=== PATIENT | male | born 1960 | race Caucasian/White ===

== ENCOUNTER 2017-11-19 03:09 | Emergency (ER) | payer SELFPAY ==
[~2017-11-19] VITALS: Ht 180.3 cm; Wt 131.5 kg
[~2017-11-19 03:09] MED LIST: ACET325; ALEVE220 MG; CEPH500 PO; CLIN300 PO; COLC.6 PO; CRUTCH3 USE; FAMO20 PO; HYDACE5 PO; INDO50 PO; NAPR500 PO; OXYACE5T PO; SULTRIDS PO
[2017-11-19] MEDS ORDERED: COLCRYS0.6 MG PO (04:33)
[2017-11-19] MEDS ORDERED: Indomethacin50 MG PO (04:33)
== END 2017-11-19 04:48 | disposition home or self-care (01) ==
LOC: ER 03:09
DX: M10.071 Idiopathic gout, right ankle and foot (principal); E66.9 Obesity, unspecified; Z88.6 Allergy status to analgesic agent; Z68.41 Body mass index [BMI] 40.0-44.9, adult
CPT/HCPCS: 96372; 99283; J1885

== ENCOUNTER 2020-11-02 11:41 | Emergency (ER) | payer BC ==
[~2020-11-02] VITALS: Ht 182.9 cm; Wt 124.7 kg
[~2020-11-02 11:41] MED LIST changes: +COLCRYS0.6 MG PO; +Indomethacin50 MG PO
[2020-11-02] MEDS ORDERED: INDO50 PO (13:42)
== END 2020-11-02 14:05 | disposition home or self-care (01) ==
LOC: ER 11:41
DX: R60.0 Localized edema (principal)
CPT/HCPCS: 93971; 99283-25

== ENCOUNTER 2021-06-14 13:18 | Emergency (ER) | payer BC ==
[~2021-06-14] VITALS: Ht 177.8 cm; Wt 125.5 kg
[2021-06-14 14:21] LABS: BASOPHILS ABSOLUTE AUTO 0.01 K/mm3 (0.00-0.23); BASOPHILS PERCENT AUTO 0 % (0-2); EOSINOPHILS PERCENT AUTO 2 % (0-6); Hematocrit 35.2 % (37.0-53.0); Hemoglobin 12.1 g/dL (13.5-17.5); IMMATURE GRAN ABSOLUTE AUTO 0.02 K/mm3 (0.00-0.10); IMMATURE GRAN PERCENT AUTO 0 % (0-1); LYMPHOCYTES ABSOLUTE AUTO 0.41 K/mm3 (0.84-5.20); LYMPHOCYTES PERCENT AUTO 8 % (21-46); MONOCYTES PERCENT AUTO 8 % (4-13); Mean Corpuscular HGB 33.3 pg (26.0-34.0); Mean Corpuscular HGB Conc 34.4 g/dL (31.5-36.5); Mean Corpuscular Volume 97 fL (80-100); Mean Platelet Volume 9.1 fL (9.1-12.4); NEUTROPHILS ABSOLUTE AUTO 3.99 K/mm3 (1.96-9.15); NEUTROPHILS PERCENT AUTO 81 % (41-73); Platelet Count 107 K/mm3 (150-400); RDW Coefficient Variation 13.3 % (11.7-14.2); RDW Standard Deviation 46.5 fL (35.1-46.3); Red Blood Cell Count 3.63 M/mm3 (4.30-5.90); White Blood Cell Count 4.93 K/mm3 (4.00-11.30)
[2021-06-14 14:35] LABS: Anion Gap 6 mmol/L (6-16); Blood Urea Nitrogen 10 mg/dL (8-24); Bun/Creatinine Ratio 9.5 (12.0-20.0); CO2, Blood 23 mmol/L (21-32); Calcium, Blood 8.6 mg/dL (8.5-10.1); Chloride, Blood 103 mmol/L (98-108); Creatinine, Blood 1.05 mg/dL (0.60-1.20); Glomerular Filtration Rate >60 (60-); Glucose, Blood 97 mg/dL (70-99); Sodium, Blood 132 mmol/L (136-145)
[2021-06-14] MEDS ORDERED: LEVO750 PO (16:48)
[2021-06-14] MEDS ORDERED: Percocet 5-3251 EACH PO (16:48)
[2021-06-14] MEDS ORDERED: SULTRIDS PO (16:48)
[2021-06-14] MEDS ORDERED: ACET325 PO (16:48)
== END 2021-06-14 17:49 | disposition home or self-care (01) ==
LOC: ER 13:18
PROVIDERS: Student in an Organized Health Care Education/Training Program
DX: L03.116 Cellulitis of left lower limb (principal); L03.115 Cellulitis of right lower limb; I10 Essential (primary) hypertension
CPT/HCPCS: 36415; 73590; 80048; 83605; 85025; 85651; 86140; 87070; 87075; 87077; 87147; 87186; 87205; 93970; 96365; 96366; 96367; 96375; 99283-25; A9270; J0692; J1885; J3370; J7050

== ENCOUNTER 2021-07-12 13:35 | Inpatient (IN) | payer BC, OTHER ==
[~2021-07-12] VITALS: Ht 182.9 cm; Wt 127.7 kg
[~2021-07-12 13:35] MED LIST changes: +ACET325 PO; +LEVO750 PO; +Percocet 5-3251 EACH PO
[2021-07-12 14:36] LABS: BASOPHILS ABSOLUTE AUTO 0.01 K/mm3 (0.00-0.23); BASOPHILS PERCENT AUTO 0 % (0-2); EOSINOPHILS ABSOLUTE AUTO 0.05 K/mm3 (0.00-0.68); EOSINOPHILS PERCENT AUTO 1 % (0-6); Hematocrit 34.1 % (37.0-53.0); Hemoglobin 11.6 g/dL (13.5-17.5); IMMATURE GRAN ABSOLUTE AUTO 0.02 K/mm3 (0.00-0.10); IMMATURE GRAN PERCENT AUTO 0 % (0-1); LYMPHOCYTES ABSOLUTE AUTO 0.68 K/mm3 (0.84-5.20); LYMPHOCYTES PERCENT AUTO 15 % (21-46); MONOCYTES ABSOLUTE AUTO 0.57 K/mm3 (0.16-1.47); MONOCYTES PERCENT AUTO 13 % (4-13); Mean Corpuscular HGB 33.2 pg (26.0-34.0); Mean Corpuscular Volume 98 fL (80-100); Mean Platelet Volume 9.8 fL (9.1-12.4); NEUTROPHILS ABSOLUTE AUTO 3.19 K/mm3 (1.96-9.15); NEUTROPHILS PERCENT AUTO 71 % (41-73); Platelet Count 126 K/mm3 (150-400); RDW Standard Deviation 50.4 fL (35.1-46.3); Red Blood Cell Count 3.49 M/mm3 (4.30-5.90); White Blood Cell Count 4.52 K/mm3 (4.00-11.30)
[2021-07-12 14:54] LABS: Albumin, Blood 2.6 g/dL (3.4-5.0); Albumin/Globulin Ratio 0.6 (0.8-1.8); Bilirubin, Total 0.4 mg/dL (0.1-1.0); Bun/Creatinine Ratio 16.8 (12.0-20.0); Calcium, Blood 8.7 mg/dL (8.5-10.1); Creatinine, Blood 1.37 mg/dL (0.60-1.20); Globulin, Blood 4.7 g/dL (2.2-4.0); Potassium, Blood 3.5 mmol/L (3.5-5.5); Total Protein, Blood 7.3 g/dL (6.4-8.2)
[2021-07-12 15:46] LABS: International Normalized Ratio 0.98; Prothrombin Time Results 10.3 Sec (9.7-11.5)
[2021-07-12 16:06] LABS: Influenza A, PCR NEGATIVE (NEGATIVE); Influenza B, PCR NEGATIVE (NEGATIVE); Resp Syncytial Virus, PCR NEGATIVE (NEGATIVE); SARS-Cov-2 (COVID-19) PCR, MMC NEGATIVE (NEGATIVE)
[2021-07-12] MEDS ORDERED: LISI20 PO (16:09)
[2021-07-12 17:45] LABS: Source, Urine Catheter
[2021-07-12 17:49] LABS: Appearance, Urine Clear (Clear); Bilirubin, Urine Neg (Neg); Blood, Urine Neg (Neg); Color, Urine Yellow (P-Yellow); Glucose Qualitative, Urine Neg (Neg); Ketones, Urine Neg (Neg); Leukocyte Esterase, Urine Neg (Neg); Nitrite, Urine Neg (Neg); Protein, Urine 2+ (Neg); Specific Gravity, Urine 1.015 (1.003-1.022); Urobilinogen, Urine NORM (Normal)
[2021-07-12 18:02] LABS: Bacteria Rare /hpf; Red Blood Cells, Urine 0-2 /hpf (0-2); Renal Epithelial Few /hpf (0-Rare); Transitional Epithelial Cells Rare /hpf (0-Rare); White Blood Cells, Urine 0-2 /hpf (0-5)
[2021-07-12 18:03] LABS: Squamous Epithelial Cells Few /hpf (Few)
[2021-07-12] MEDS ORDERED: ZESTRIL40 M1 PO (21:20)
--- NOTE | 2021-07-13 01:20 | NUR ---
ADMISSION NOTE PT ADMITTED TO MED FROM ER. ARRIVED TO ROOM AT 2100. PT REQUESTING PAIN MEDS AND GIVEN FENTANYL PER EMAR. PT UP TO RESTROOM ON HIS OWN. DOES NOT WANT TO USE A URINAL. RED SORES BILAT LEGS WITH MRSA. MRSA ALSO TO GROIN. PT HAS NUMEREOUS SMALL WOUNDS TO ARMS AND LEGS. LEGS SWOLLEN AND WEEPING.
--- NOTE | 2021-07-13 03:50 | NUR ---
SHIFT SUMMARY PT PAINFUL AND MEDICATED PER EMAR. PT HAS MULTIPLE MRSA SORES TO LOWER LEGS AND GROIN. PT HAS MANY WOUNDS ON UPPER AND LOWER EXTREMITIES. LEGS ARE SWOLLEN AND WEEP. PT HAS HX OF ETOH, HYPERTENSION, AND GOUT. PT HAS A COUGH, BUT STS THAT IS NORMAL FOR HIM. NS RUNNING AT 100/HR. VERY PLEASANT PT WHO IS ABLE TO GET UP TO THE TOILET ON HIS OWN. STATED FROM ER THAT PT HAS ULCER ON HIS BUTTOCKS, NOT VISUALIZED BY ME. CALL LIGHT WITHIN REACH AND WILL CONTINUE TO MONITOR.
[2021-07-13 05:02] LABS: BASOPHILS ABSOLUTE AUTO 0.01 K/mm3 (0.00-0.23); BASOPHILS PERCENT AUTO 0 % (0-2); EOSINOPHILS ABSOLUTE AUTO 0.02 K/mm3 (0.00-0.68); EOSINOPHILS PERCENT AUTO 1 % (0-6); Hematocrit 31.8 % (37.0-53.0); Hemoglobin 10.6 g/dL (13.5-17.5); IMMATURE GRAN ABSOLUTE AUTO 0.02 K/mm3 (0.00-0.10); IMMATURE GRAN PERCENT AUTO 1 % (0-1); LYMPHOCYTES PERCENT AUTO 9 % (21-46); MONOCYTES PERCENT AUTO 14 % (4-13); Mean Corpuscular HGB 32.8 pg (26.0-34.0); Mean Corpuscular HGB Conc 33.3 g/dL (31.5-36.5); Mean Corpuscular Volume 99 fL (80-100); Mean Platelet Volume 9.8 fL (9.1-12.4); NEUTROPHILS ABSOLUTE AUTO 3.25 K/mm3 (1.96-9.15); NEUTROPHILS PERCENT AUTO 76 % (41-73); Platelet Count 104 K/mm3 (150-400); RDW Coefficient Variation 13.9 % (11.7-14.2); Red Blood Cell Count 3.23 M/mm3 (4.30-5.90)
[2021-07-13 05:24] LABS: Bun/Creatinine Ratio 19.5 (12.0-20.0); Calcium, Blood 8.1 mg/dL (8.5-10.1); Creatinine, Blood 1.33 mg/dL (0.60-1.20); Potassium, Blood 3.3 mmol/L (3.5-5.5)
--- NOTE | 2021-07-13 11:29 | NUR ---
DRESSING CHANGE/ PHOTOS IN CHART THIS RN DRESSED THE PATIENTS LEFT LEG WITH NONADHESIVE DRESSING. PHOTOS IN CHART
--- NOTE | 2021-07-13 16:50 | NUR ---
SHIFT SUMMARY PATIENT IS ALERT AND ORIENTED X3-4. PATIENT IS IND IN ROOM. PATIENT HAS BEEN MEDICATED PER EMAR. PATIENT HAS COMPLAINED OF PAIN IN CELLULITIS OF LEFT LEG. PHOTOS OF WOUND ARE IN THE CHART. LEGS ARE SWOLLEN AND WEEPING. PATIENT HAS A COUGH AT BASELINE. PATIENT STATES THAT HIS GROIN HURTS AND HAS WOUND BUT WONT LET ANYONE SEE IT. VITAL SIGNS REVIEWED. CALL LIGHT IN PLACE. WILL MONITOR UNTIL SHIFT CHANGE.
--- NOTE | 2021-07-14 04:13 | NUR ---
SHIFT SUMMARY AOX4. VSS. REPORTS 04/25 "PINS & NEEDLE" PAIN IN BLE, GROIN & BACK-MEDICATED 1X c 50MCG FENTANYL, STATED RELIEF c PAIN LEVEL DROPPING TO 5/10. LLE ANGRY RED, EXCORIATIONS, ABRASIONS, +2 EDEMA & WOUND c MODERATE AMOUNT SEROSANGUINEOUS DRAINAGE, CLEANSED, APPLIED BACTROBAN & NEW BANDAGES. DENIES N/V OR SOB. INCONT/CONT OF URINE. GROIN RED, CLEANSED & APPLIED MICONAZOLE POWDER. CALL LIGHT IN REACH. WCTM UNTIL DAY NURSE ASSUMES CARE.
[2021-07-14 06:14] LABS: BASOPHILS ABSOLUTE AUTO 0.01 K/mm3 (0.00-0.23); BASOPHILS PERCENT AUTO 0 % (0-2); EOSINOPHILS ABSOLUTE AUTO 0.07 K/mm3 (0.00-0.68); EOSINOPHILS PERCENT AUTO 2 % (0-6); Hematocrit 27.2 % (37.0-53.0); Hemoglobin 9.2 g/dL (13.5-17.5); IMMATURE GRAN ABSOLUTE AUTO 0.04 K/mm3 (0.00-0.10); IMMATURE GRAN PERCENT AUTO 1 % (0-1); LYMPHOCYTES ABSOLUTE AUTO 0.75 K/mm3 (0.84-5.20); LYMPHOCYTES PERCENT AUTO 22 % (21-46); MONOCYTES ABSOLUTE AUTO 0.56 K/mm3 (0.16-1.47); MONOCYTES PERCENT AUTO 16 % (4-13); Mean Corpuscular HGB Conc 33.8 g/dL (31.5-36.5); Mean Corpuscular Volume 98 fL (80-100); Mean Platelet Volume 9.4 fL (9.1-12.4); NEUTROPHILS ABSOLUTE AUTO 2.04 K/mm3 (1.96-9.15); NEUTROPHILS PERCENT AUTO 59 % (41-73); Platelet Count 109 K/mm3 (150-400); RDW Coefficient Variation 14.2 % (11.7-14.2); RDW Standard Deviation 51.6 fL (35.1-46.3); Red Blood Cell Count 2.79 M/mm3 (4.30-5.90); White Blood Cell Count 3.47 K/mm3 (4.00-11.30)
[2021-07-14 06:47] LABS: Anion Gap 12 mmol/L (6-16); Blood Urea Nitrogen 27 mg/dL (8-24); Bun/Creatinine Ratio 29.8 (12.0-20.0); CO2, Blood 14 mmol/L (21-32); Calcium, Blood 8.6 mg/dL (8.5-10.1); Chloride, Blood 113 mmol/L (98-108); Creatinine, Blood 0.91 mg/dL (0.60-1.20); Glomerular Filtration Rate >60 (60-); Glucose, Blood 98 mg/dL (70-99); Potassium, Blood 3.2 mmol/L (3.5-5.5); Sodium, Blood 139 mmol/L (136-145); Vancomycin, Trough 19.2 ug/mL (5.0-10.0)
[2021-07-14 14:34] LABS: BASOPHILS ABSOLUTE AUTO 0.01 K/mm3 (0.00-0.23); BASOPHILS PERCENT AUTO 0 % (0-2); EOSINOPHILS ABSOLUTE AUTO 0.04 K/mm3 (0.00-0.68); EOSINOPHILS PERCENT AUTO 1 % (0-6); Hematocrit 29.8 % (37.0-53.0); Hemoglobin 10.2 g/dL (13.5-17.5); IMMATURE GRAN ABSOLUTE AUTO 0.04 K/mm3 (0.00-0.10); IMMATURE GRAN PERCENT AUTO 1 % (0-1); LYMPHOCYTES ABSOLUTE AUTO 0.59 K/mm3 (0.84-5.20); LYMPHOCYTES PERCENT AUTO 20 % (21-46); MONOCYTES PERCENT AUTO 13 % (4-13); Mean Corpuscular HGB 33.4 pg (26.0-34.0); Mean Corpuscular HGB Conc 34.2 g/dL (31.5-36.5); Mean Corpuscular Volume 98 fL (80-100); Mean Platelet Volume 9.4 fL (9.1-12.4); NEUTROPHILS ABSOLUTE AUTO 1.92 K/mm3 (1.96-9.15); NEUTROPHILS PERCENT AUTO 64 % (41-73); Platelet Count 123 K/mm3 (150-400); RDW Coefficient Variation 14.1 % (11.7-14.2); RDW Standard Deviation 51.3 fL (35.1-46.3); Red Blood Cell Count 3.05 M/mm3 (4.30-5.90)
[2021-07-14 15:05] LABS: Anion Gap 8 mmol/L (6-16); Blood Urea Nitrogen 27 mg/dL (8-24); CO2, Blood 18 mmol/L (21-32); Calcium, Blood 8.4 mg/dL (8.5-10.1); Chloride, Blood 110 mmol/L (98-108); Ferritin, Serum 265 ng/mL (26-388); Glomerular Filtration Rate >60 (60-); Glucose, Blood 97 mg/dL (70-99); Iron Serum 51 ug/dL (65-175); Percent Saturation 32.9 % (20.0-50.0); Potassium, Blood 3.6 mmol/L (3.5-5.5); Sodium, Blood 136 mmol/L (136-145); Total Iron Binding Capacity 155 ug/dL (250-450)
--- NOTE | 2021-07-14 18:20 | NUR ---
SHIFT SUMMARY; PATIENT VERY VOCAL DURING DAY. SHOUTS OUT DOOR TO STAFF ASKING QUESTIONS. REMINDED OFTEN TO USE CALL LIGHT. LEFT LEG IS BANDAGED BID TODAY WITH NON STICK BANDAGES AND CURLEX GAUZE. PATIENT WAS TOLD BY HOSPITALIST MAY DISCHARGE TODAY HOWEVER COMES TO ROOM AND SAYS PAITENT MAY DISCHARGE TOMORRROW. LUIZ SWANSON RN CARE MANAGER IS WORKING ON WOUND CLINIC AND IV THERAPY FOR PATIENT OUTPATITENT. PATIENT IS CONCERNED HE MAY NOT HAVE A RIDE HOME. WILL RELAY HIS MESSAGE TO REED WORKER. SHERRY AN RN
--- NOTE | 2021-07-15 04:25 | NUR ---
SHIFT SUMMARY A/OX4, IND TO BATHROOM. C/O PAIN TO BLE, MEDICATED PER EMAR. DRESSINGS CHANGED TID AND PRN. VSS, NO ACUTE CHANGES AT THIS TIME. BED IN LOWEST POSITION WITH CALL LIGHT IN REACH. WILL CONTINUE TO MONITOR AND REPORT TO ONCOMING RN.
[2021-07-15 05:51] LABS: BASOPHILS ABSOLUTE AUTO 0.02 K/mm3 (0.00-0.23); BASOPHILS PERCENT AUTO 1 % (0-2); EOSINOPHILS ABSOLUTE AUTO 0.08 K/mm3 (0.00-0.68); EOSINOPHILS PERCENT AUTO 2 % (0-6); Hematocrit 29.2 % (37.0-53.0); Hemoglobin 9.8 g/dL (13.5-17.5); IMMATURE GRAN ABSOLUTE AUTO 0.08 K/mm3 (0.00-0.10); IMMATURE GRAN PERCENT AUTO 2 % (0-1); LYMPHOCYTES ABSOLUTE AUTO 0.78 K/mm3 (0.84-5.20); LYMPHOCYTES PERCENT AUTO 24 % (21-46); MONOCYTES ABSOLUTE AUTO 0.45 K/mm3 (0.16-1.47); MONOCYTES PERCENT AUTO 14 % (4-13); Mean Corpuscular HGB 33.3 pg (26.0-34.0); Mean Corpuscular HGB Conc 33.6 g/dL (31.5-36.5); Mean Corpuscular Volume 99 fL (80-100); Mean Platelet Volume 9.5 fL (9.1-12.4); NEUTROPHILS ABSOLUTE AUTO 1.87 K/mm3 (1.96-9.15); NEUTROPHILS PERCENT AUTO 57 % (41-73); Platelet Count 133 K/mm3 (150-400); RDW Coefficient Variation 14.2 % (11.7-14.2); RDW Standard Deviation 52.1 fL (35.1-46.3); Red Blood Cell Count 2.94 M/mm3 (4.30-5.90); White Blood Cell Count 3.28 K/mm3 (4.00-11.30)
[2021-07-15 06:56] LABS: Anion Gap 13 mmol/L (6-16); Blood Urea Nitrogen 24 mg/dL (8-24); Bun/Creatinine Ratio 25.2 (12.0-20.0); CO2, Blood 13 mmol/L (21-32); Calcium, Blood 8.5 mg/dL (8.5-10.1); Chloride, Blood 112 mmol/L (98-108); Creatinine, Blood 0.95 mg/dL (0.60-1.20); Glomerular Filtration Rate >60 (60-); Glucose, Blood 92 mg/dL (70-99); Potassium, Blood 3.8 mmol/L (3.5-5.5); Sodium, Blood 138 mmol/L (136-145)
[2021-07-15] MEDS ORDERED: FERSU300 PO (13:52)
[2021-07-15] MEDS ORDERED: Amoxicillin500 MG PO (13:52)
[2021-07-15] MEDS ORDERED: TRAM50 PO (14:02)
[2021-07-15] MEDS ORDERED: ANTIFUNGAL POWD71 GM TOP (14:02)
[2021-07-15] MEDS ORDERED: SENNA LAXATIVE8.6 MG PO (14:03)
[2021-07-15] MEDS ORDERED: VISBIOME 112.51 EACH PO (14:04)
[2021-07-15] MEDS ORDERED: DOXY100 PO (14:04)
== END 2021-07-15 14:56 | disposition home or self-care (01) | DRG 603 ==
LOC: ER 13:35 → MEDS 19:20
PROVIDERS: Family Medicine; Physician Assistant; Student in an Organized Health Care Education/Training Program; ADMIT Internal Medicine
DX: L03.116 Cellulitis of left lower limb (principal); N17.9 Acute kidney failure, unspecified; E87.1 Hypo-osmolality and hyponatremia; L97.929 Non-pressure chronic ulcer of unspecified part of left lower leg with unspecified severity; B37.89 Other sites of candidiasis; Z20.822 Contact with and (suspected) exposure to COVID-19; I11.0 Hypertensive heart disease with heart failure; I50.9 Heart failure, unspecified; M10.9 Gout, unspecified; B95.62 Methicillin resistant Staphylococcus aureus infection as the cause of diseases classified elsewhere; B95.1 Streptococcus, group B, as the cause of diseases classified elsewhere; D69.6 Thrombocytopenia, unspecified; E66.9 Obesity, unspecified; D63.8 Anemia in other chronic diseases classified elsewhere; E87.6 Hypokalemia; R82.71 Bacteriuria; Z79.899 Other long term (current) drug therapy; Z68.38 Body mass index [BMI] 38.0-38.9, adult
CPT/HCPCS: 0241U; 36415; 71045; 80048; 80053; 80202; 81001; 82607; 82728; 82746; 83540; 83550; 83605; 83735; 83880; 85025; 85610; 85730; 87086; 93005; 93010; 93306; 96365; 96375; 97116; 97161; 97165; 97535; 99284-25; A9270; J0696; J1650; J1940; J3010; J3370; J3480; J7030; J7050

== ENCOUNTER 2022-01-07 08:15 | Inpatient (IN) | payer OTHER ==
[~2022-01-07] VITALS: Ht 188 cm; Wt 122.5 kg
[~2022-01-07 08:15] MED LIST changes: +ANTIFUNGAL POWD71 GM TOP; +Amoxicillin500 MG PO; +DOXY100 PO; +FERSU300 PO; +LISI20 PO; +SENNA LAXATIVE8.6 MG PO; +TRAM50 PO; +VISBIOME 112.51 EACH PO; +ZESTRIL40 M1 PO
[2022-01-07 09:30] LABS: Hemoglobin 7.3 g/dL (13.5-17.5); Mean Corpuscular HGB 27.8 pg (26.0-34.0); Mean Corpuscular HGB Conc 29.2 g/dL (31.5-36.5); Mean Corpuscular Volume 95 fL (80-100); Platelet Count 109 K/mm3 (150-400); RDW Coefficient Variation 16.8 % (11.7-14.2); RDW Standard Deviation 58.8 fL (35.1-46.3); Red Blood Cell Count 2.63 M/mm3 (4.30-5.90); White Blood Cell Count 14.73 K/mm3 (4.00-11.30)
[2022-01-07 10:00] LABS: Ethanol (Alcohol), Blood, Med <3 mg/dL; Magnesium, Blood 1.8 mg/dL (1.6-2.4)
[2022-01-07 10:02] LABS: BAND PERCENT MAN 21 % (0-8); BASOPHILS PERCENT MAN 0 % (0-2); EOSINOPHILS PERCENT MAN 0 % (0-6); LYMPHOCYTES ABSOLUTE MAN 0.73 K/mm3 (0.84-5.20); LYMPHOCYTES PERCENT MAN 5 % (21-46); MONOCYTES ABSOLUTE MAN 0.58 K/mm3 (0.16-1.47); MONOCYTES PERCENT MAN 4 % (4-13); SEG NEUTROPHILS PERCENT MAN 70 % (41-73); TOTAL CELLS COUNTED 100
[2022-01-07 10:31] LABS: International Normalized Ratio 1.14; Prothrombin Time Results 11.9 Sec (9.7-11.5)
[2022-01-07 10:44] LABS: Percent Saturation 3.5 % (20.0-50.0)
[2022-01-07 11:00] LABS: Influenza A, PCR NEGATIVE (NEGATIVE); Influenza B, PCR NEGATIVE (NEGATIVE); Resp Syncytial Virus, PCR NEGATIVE (NEGATIVE); SARS-Cov-2 (COVID-19) PCR, MMC NEGATIVE (NEGATIVE)
[2022-01-07 11:31] LABS: Free Thyroxine 0.96 ng/dL (0.70-1.60); Triiodothyronine, Free 0.93 pg/mL (2.18-3.98)
[2022-01-07 11:44] LABS: Source, Urine Clean Catch
[2022-01-07 11:49] LABS: Appearance, Urine Hazy (Clear); Blood, Urine 2+ (Neg); Color, Urine Amber (P-Yellow); Glucose Qualitative, Urine Neg (Neg); Ketones, Urine 1+ (Neg); Leukocyte Esterase, Urine 3+ (Neg); Nitrite, Urine Neg (Neg); Protein, Urine 2+ (Neg); Urobilinogen, Urine 1+ (Normal)
[2022-01-07 11:52] LABS: Bun/Creatinine Ratio 13.9 (12.0-20.0); Creatinine, Blood 3.1 mg/dL (0.60-1.20); Potassium, Blood 4.9 mmol/L (3.5-5.5)
[2022-01-07 12:01] LABS: U Amphetamine Screen Not Detected; U Barbituate Screen Not Detected; U Benzodiazapine Screen Not Detected; U Buprenorphine Screen Not Detected; U Cannabinoids Screen Not Detected; U Cocaine Screen Not Detected; U Methadone Screen Not Detected; U Methamphetamine Screen Not Detected; U Opiates Screen Not Detected; U Oxycodone Screen Not Detected; U Phencyclidine Screen Not Detected; U Propoxyphene Screen Not Detected
[2022-01-07 12:05] LABS: Bilirubin, Urine 2+ (Neg)
[2022-01-07 12:07] LABS: Bacteria Many /hpf; Renal Epithelial Few /hpf (0-Rare); Squamous Epithelial Cells Few /hpf (Few); Transitional Epithelial Cells Few /hpf (0-Rare); White Blood Cells, Urine 25-50 /hpf (0-5)
[2022-01-07 15:40] LABS: Albumin, Blood 2.3 g/dL (3.4-5.0); Albumin/Globulin Ratio 0.5 (0.8-1.8); Bilirubin, Total 0.7 mg/dL (0.1-1.0); Bun/Creatinine Ratio 14.8 (12.0-20.0); Calcium, Blood 7.9 mg/dL (8.5-10.1); Creatinine, Blood 2.83 mg/dL (0.60-1.20); Globulin, Blood 4.2 g/dL (2.2-4.0); Potassium, Blood 4.8 mmol/L (3.5-5.5); Total Protein, Blood 6.5 g/dL (6.4-8.2)
--- NOTE | 2022-01-07 15:45 | NUR ---
RECEIVED PT FROM ER VIA [facility] [employer]. DX-SEPSIS AND NEW ONSET AFIB. PT IS A&0X4. PT REPORTS 8/10 LEFT LOWER EXTREMITY PAIN. PMH-HTN, CHF, AKD, CELLULITIS, CHRISTOPHE, HYPOKALEMIA, MRSA IN WOUNDS.PT REPORTS THAT HE WAS IN HIS USUAL STATE OF HEALTH AND ACTUALLY WORKING UNTIL 2 WEEKS AGO. HE STATES THAT HE ATE SOME "BAD PORK" AND HAS HAD DIARRHEA AND WEAKNESS SINCE. PT HAS BEEN BED BOUND. HE WAS FOUND IN HIS OWN EXCREMENT. PT HAS WOUNDS TO BOTH LOWER EXTREMITIES. THERE IS A LARGE AREA OF SLOUGH TO THE LEFT CALF AREA. PHOTOS TAKEN AND WOUND CARE COMPLETED. ALSO, PT SCROTUM, ELISABETH AREA, AND BUTTOCK ARE EXCORIATED. THERE IS A SMALL WOUND TO THE GLUTEAL FOLD. PHOTOS TAKEN-CLEANSED WITH SOAP AND WATER, PATTED DRY, THEN CALAZIME CREAM APPLIED. PT REPORTS THAT HIS "BUTT" AND "SCROTUM" ARE VERY PAINFUL 9/10. ECG SHOWS AFIB WITH RATE 100'S. 1 UNIT PRBC'S INFUSING AND PT DID RECEIVE 3 LITERS NS IN THE ER. SBP TRENDING 90'S. LUNGS CLEAR. NO NOTED SOB OR COUGH. SATS>90% ON RA. ABDOMEN OBESE, SOFT, AND NONTENDER WITH BT'S X 4. PT ATTEMPTED TO VOID AND STOOL, BUT WAS NOT SUCCESSFUL. WILL PLACE SAN CATHETER AND SEND U/A PER SAN INSERTION PROTOCOL. WILL PLACE EXTENDED DWELL CATHETER AND WOUNED CARE CONSULT.
[2022-01-07 18:30] LABS: Source, Urine Foley catheter
[2022-01-07 18:38] LABS: Appearance, Urine Hazy (Clear); Bilirubin, Urine Neg (Neg); Blood, Urine 5+ (Neg); Color, Urine Yellow (P-Yellow); Glucose Qualitative, Urine Neg (Neg); Ketones, Urine Neg (Neg); Leukocyte Esterase, Urine 3+ (Neg); Nitrite, Urine Neg (Neg); Protein, Urine 1+ (Neg); Urobilinogen, Urine NORM (Normal)
[2022-01-07 19:55] LABS: Amorphous Light (0-Heavy); Bacteria Few /hpf; Mucus Light (0-Heavy); Squamous Epithelial Cells Few /hpf (Few); White Blood Cells, Urine TNTC /hpf (0-5)
--- NOTE | 2022-01-07 20:00 | NUR ---
Assumed Care: AOx3, cooperative. Slight NEWHALEN. Able to make all needs known. Pain to the scrotum and BLE. Repositioned in bed. Sling placed under scrotum. Scrotum slightly swollen, red and rash. Powder applied per orders. Lung sounds clear t/o resp e/u. Sats >90%. Afib on the monitor, rate 90-110's on average. Occationally will jump to 120's when he is moving. BP soft in the 90's. Did speak to Dr. Barney in regards to digoxin need. Order to DC as the patients rate has improved. Denies any CP or pressure. ABD soft, BTX4, no bm yet. Cath patent w/ clear yellow urine. Skin Pale, cool and moist in groin area. powder applied, crease of gluteal folds has barrier cream. recently cleaned and applied. BLE wound care recently done, leg dressings CDI. IVF infusing. Will continue to monitor, call light in reach.
--- NOTE | 2022-01-08 | NUR ---
CALLED HOSPITALIST REGARDING LABS, AWAITING REPLAY
[2022-01-08 04:08] LABS: Hematocrit 23.9 % (37.0-53.0); Hemoglobin 7.2 g/dL (13.5-17.5); Mean Corpuscular HGB 28.2 pg (26.0-34.0); Mean Corpuscular HGB Conc 30.1 g/dL (31.5-36.5); Mean Corpuscular Volume 94 fL (80-100); Mean Platelet Volume 10.9 fL (9.1-12.4); Platelet Count 103 K/mm3 (150-400); RDW Coefficient Variation 17.4 % (11.7-14.2); RDW Standard Deviation 60.4 fL (35.1-46.3); Red Blood Cell Count 2.55 M/mm3 (4.30-5.90); White Blood Cell Count 9.13 K/mm3 (4.00-11.30)
[2022-01-08 04:28] LABS: Albumin, Blood 2.3 g/dL (3.4-5.0); Albumin/Globulin Ratio 0.5 (0.8-1.8); Bilirubin, Total 0.9 mg/dL (0.1-1.0); Calcium, Blood 7.8 mg/dL (8.5-10.1); Creatinine, Blood 2.15 mg/dL (0.60-1.20); Globulin, Blood 4.2 g/dL (2.2-4.0); Potassium, Blood 4.2 mmol/L (3.5-5.5); Total Protein, Blood 6.5 g/dL (6.4-8.2)
[2022-01-08 05:08] LABS: BAND PERCENT MAN 16 % (0-8); BASOPHILS PERCENT MAN 0 % (0-2); EOSINOPHILS ABSOLUTE MAN 0.09 K/mm3 (0.00-0.68); EOSINOPHILS PERCENT MAN 1 % (0-6); LYMPHOCYTES ABSOLUTE MAN 0.36 K/mm3 (0.84-5.20); LYMPHOCYTES PERCENT MAN 4 % (21-46); MONOCYTES ABSOLUTE MAN 0.73 K/mm3 (0.16-1.47); MONOCYTES PERCENT MAN 8 % (4-13); NEUTROPHILS ABSOLUTE MAN 7.94 K/mm3 (1.96-9.15); SEG NEUTROPHILS PERCENT MAN 71 % (41-73); TOTAL CELLS COUNTED 100
--- NOTE | 2022-01-08 05:55 | NUR ---
Shift Summary: AOx3, cooperative. Able to make needs known. Very weak, but is able to lift and shift self in bed. Lung sounds clear t/o. Resp e/u, Sats >90% on RA. Afib on the monitor rate has maintained 90-110's all night. Digoxin was DC'd and never given per md. BP has been soft with MAP low 55-65, Juan-synephrine was started at 20mcq and now remains at 30mcq to maintain MAP >65. IVF continue to infuse at 125ml/hr. Diarrhea noted x1, small liquid brown. Mahmood Output 1200, with intake of 1822 this shift. Redness in gluteal fold, barrier cream prn applied. BLE dressings remain CDI. Pain to BLE and scrotum noted. Scrotum sling in place which helped, fentanyl given x1. Called lab results into Dr. Braxton, no new orders were obtained. Will continue to monitor.
--- NOTE | 2022-01-08 08:00 | NUR ---
PT A&OX4. PT STATES THAT HE "SLEPT WELL." PT REPORTS 9/10 LOWER EXTREMITY PAIN UPON AWAKENING. MED WITH FENTANYL 25 MCG IVP X 1-SEE EMAR. ECG SHOWS AFIB WITH RATE 100-110'S. MAP TRENDING [id number] ON SB. 1 UNITS PRBC'S INITIATED. UPPER EXTREMITIES WITH MILD EDEMA. LOWER EXTREMITIES WITH 2+ EDEMA. ELEVATED ON PILLOWS AND HEELS FLOATED. LUNGS CLEAR. NO NOTED COUGH OR SOB. PT DENIES NAUSEA AND NO DIARRHEA THIS AM. HOWEVER, PT REPORTS POOR APPETITE. PT DID TAKE PO MEDS WITH SIP OF WATER WITHOUT DIFFICULTY. NO SIGNS OF ASPIRATION. SAN TO BSD WITH ADEQUATE DARK, YELLOW URINE OUTPUT. LOWER EXTREMITY DRESSING C/D/I-THERE IS A FOUL ODOR NOTED. ANTICIPATE WOUND CARE CONSULT TODAY. ELISABETH AREA, SCROTUM, AND COCCYX STILL EXCORIATED, BUT NOT RED PREVIOUS ASSESSMENT. ELISABETH CARE DONE AND ANTIFUNGAL POWDER PLACED. PT ASSISTING WITH TURNS IN BED, BUT NEEDS REMINDERS TO TURN FROM SIDE TO SIDE. CALL LIGHT WITHIN REACH. PT ABLE TO UTILIZE CALL LIGHT AND COMMUNICATE NEEDS WELL.
--- NOTE | 2022-01-08 08:30 | NUR ---
ECHO IN PROGRESS. DR. REYES GIVEN FULL UPDATE. SHE WILL RETURN TO SEE PT LATER ECHO IN PROGRESS.
--- NOTE | 2022-01-08 12:00 | NUR ---
PT HAS BEEN RESTING QUIETLY WHEN NOT DISTURBED. PT AWAKENS TO VOICE AND IS A&OX4. PT DENIES PAIN. HR TRENDING 90'S AFIB. SBP TRENDING 90-110'S AND MAP TRENDING 65-70'S. PT DENIES CP OR SOB. PT BOOSTED IN BED AND GIVEN LUNCH TRAY. HE TOOK A COUPLE OF BITES AND THEN STARTED TO CRY OUT FOR HELP. PT STATED THAT HE NEEDED TO HAVE BM "REALLY BAD!" PT PLACED ON THE BEDPAN AND HE DID HAVE A MODERATE AMOUNT OF BROWN, LIQUID STOOL. DR. REYES AWARE-STOOL SENT FOR C-DIFF. ELISABETH CARE COMPLETED AND SKIN BARRIER APPLIED. DRESSINGS INTACT TO BILATERAL LOWER EXTREMITIES, BUT MODERATE AMOUNT OF YELLOW, MALODOROUS DRAINAGE NOTED. NO PARTS PROCESSOR HER TODAY, BUT MESSAGE ON LEFT ON VOICEMAIL. PLAN TO CULTURE WOUNDS THIS AFTERNOON PRIOR TO WOUND CARE.
[2022-01-08 14:28] LABS: Stool Occult Blood Guaiac 1 Neg (Neg)
[2022-01-08 14:37] LABS: C DIFFICILE DNA NEGATIVE (Negative)
--- NOTE | 2022-01-08 15:54 | NUR ---
PT PRE-MED FOR PAIN 30 MINUTES PRIOR TO WOUND CARE. BILATERAL WOUND CULTURES SENT. BOTH LOWER EXTREMITIES WITH MODERATE TO LARGE AMOUNT OF PURULENT, MALODOROUS DRAINAGE NOTED. BILATERAL REDNESS/CELLUTLITS LIKE APPEARANCE HAS IMPROVED FROM 01/07/22. THE WOUND TO THE CALF AREA OF THE LEFT LEG IS SLIGHTLY IMPROVED AND APPEARS TO HAVE LESS SLOUGH THAN 01/07/22. AFTER WOUND CARE COMPLETED, PT BATHED AND LINEN CHANGE COMPLETED. TOLERATED WELL. MAP TRENDING 79-90'S. ANTICIPATE STATUS CHANGE TO MED WITH TELE.
--- NOTE | 2022-01-08 16:55 | NUR ---
PT UTILIZED CALL SYSTEM TO REQUEST "PAIN MEDS." PT REPORTS / BILATERAL LOWER EXTREMITY PAIN. MED WITH OXYCODONE 5 MG PO-SEE EMAR.
--- NOTE | 2022-01-08 18:41 | NUR ---
PT ATE 30% OF DINNER TRAY AND DRANK 100% OF HIS ENSURE. PT RESTING QUIETLY WHEN NOT DISTURBED. NO NOTED DISTRESS.
--- NOTE | 2022-01-08 19:29 | NUR ---
Assumed Care. AOX3, cooperative. Pain 7-8 tolerable at this moment he states. States feels better when he is able to bend his legs slightly. Recently had Oxycodone for pain. LS clear t/o, resp E/U. Afib with rate 90-low 100's. No CP or palpitations noted. BP with MAP >65 and holding. Edema in BUE and BLE have improved. Active BT-continues to have diarrhea, C-Diff is pending. Mahmood patent and draining yellow urine. Dressings changed on dayshift to BLE. CDI. Barrier cream to bottom, powder to scrotum, states the scrotum pain has improved. Redness decreased. IVF infusing at 125ml/hr. Will continue to monitor. Call light is in reach.
--- NOTE | 2022-01-08 22:00 | NUR ---
Report given to Silvana ALCARAZ. Patient transferred to Medical floor room 333.
--- NOTE | 2022-01-09 04:31 | NUR ---
Patient transferred from ICU in stable condition. Skin inspection revealed excoriated efra area, buttocks, and coccyx. Patient arrived with copious amounts of barrier cream and powder in place. Both LE wrapped in gauze dressings. Wound care consult in place. Patient able to answer all questions appropriately. Calm and cooperative with care. VSS on RA overnight. IVF infusing as ordered. Patient seems unwilling move in the bed. attempted to refuse repositioning but after explanation of his skin breakdown he allowed himself to be turned. Patient also unable/unwilling to reach for his glass of water. No explanation offered for his lack of movement.
[2022-01-09 05:30] LABS: BASOPHILS ABSOLUTE AUTO 0.01 K/mm3 (0.00-0.23); BASOPHILS PERCENT AUTO 0 % (0-2); EOSINOPHILS ABSOLUTE AUTO 0.08 K/mm3 (0.00-0.68); EOSINOPHILS PERCENT AUTO 2 % (0-6); Hematocrit 24.6 % (37.0-53.0); Hemoglobin 7.2 g/dL (13.5-17.5); IMMATURE GRAN ABSOLUTE AUTO 0.02 K/mm3 (0.00-0.10); IMMATURE GRAN PERCENT AUTO 0 % (0-1); LYMPHOCYTES ABSOLUTE AUTO 0.46 K/mm3 (0.84-5.20); LYMPHOCYTES PERCENT AUTO 9 % (21-46); MONOCYTES ABSOLUTE AUTO 0.26 K/mm3 (0.16-1.47); MONOCYTES PERCENT AUTO 5 % (4-13); Mean Corpuscular HGB 27.8 pg (26.0-34.0); Mean Corpuscular HGB Conc 29.3 g/dL (31.5-36.5); Mean Corpuscular Volume 95 fL (80-100); Mean Platelet Volume 10.5 fL (9.1-12.4); NEUTROPHILS ABSOLUTE AUTO 4.14 K/mm3 (1.96-9.15); NEUTROPHILS PERCENT AUTO 83 % (41-73); Platelet Count 107 K/mm3 (150-400); RDW Coefficient Variation 18.1 % (11.7-14.2); Red Blood Cell Count 2.59 M/mm3 (4.30-5.90); White Blood Cell Count 4.97 K/mm3 (4.00-11.30)
[2022-01-09 05:54] LABS: Albumin, Blood 2.1 g/dL (3.4-5.0); Albumin/Globulin Ratio 0.5 (0.8-1.8); Bilirubin, Total 0.4 mg/dL (0.1-1.0); Bun/Creatinine Ratio 26.1 (12.0-20.0); Calcium, Blood 7.4 mg/dL (8.5-10.1); Creatinine, Blood 1.19 mg/dL (0.60-1.20); Globulin, Blood 3.9 g/dL (2.2-4.0); Potassium, Blood 3.9 mmol/L (3.5-5.5)
--- NOTE | 2022-01-09 17:40 | NUR ---
PATIENT CONTINUES TO HAVE PAIN. PRN ROXICODONE APPEARS TO BE EFFECTIVE WHEN GIVEN. WOULD CARE NURSE ASSESSED HIM TODAY AND WROTE ORDERS AND AN OP WOUND CARE REFERRAL FOR POST DISCHARGE. PATIENT IS POLITE BUT LOUD DUE TO HIS INABILITY TO HEAR. PATIENT IS SL LOCKED NOW, BETWEEN FLUIDS. LEFT ARM SEEMS TO BE SWELLING A BIT. ARM BAND IS TIGHTER THAT IT WAS. BLOOD DOES RETURN FROM PG WHEN DRAWN BACK, SO IV IS NOT INFILTRATED.
--- NOTE | 2022-01-10 04:39 | NUR ---
patient with some hypotenstion and tachycardia overnight. Juancho remains in Afib on telemetry. Patient alert and conversive throughout the night. Some c/o pain in his bilat LE. See MAR. Multiple attempts on the bed orosco for BM but only gas. Mahmood catheter in palce. patent, with clear yellow urine. patient adamently refused to lay on his side overnight. This was discussed by both myself and Kaelyn MERCADO,. patient states lying on his side is too painful for his legs. Discussed his open areas on his coccyx. patient states he is aware of his skin breakdown but does not want to lie on his side.
[2022-01-10 05:33] LABS: BASOPHILS ABSOLUTE AUTO 0.03 K/mm3 (0.00-0.23); BASOPHILS PERCENT AUTO 1 % (0-2); EOSINOPHILS ABSOLUTE AUTO 0.11 K/mm3 (0.00-0.68); EOSINOPHILS PERCENT AUTO 2 % (0-6); Hemoglobin 7.9 g/dL (13.5-17.5); IMMATURE GRAN ABSOLUTE AUTO 0.02 K/mm3 (0.00-0.10); IMMATURE GRAN PERCENT AUTO 0 % (0-1); LYMPHOCYTES ABSOLUTE AUTO 0.79 K/mm3 (0.84-5.20); LYMPHOCYTES PERCENT AUTO 18 % (21-46); MONOCYTES ABSOLUTE AUTO 0.39 K/mm3 (0.16-1.47); MONOCYTES PERCENT AUTO 9 % (4-13); Mean Corpuscular HGB 27.7 pg (26.0-34.0); Mean Corpuscular HGB Conc 29.3 g/dL (31.5-36.5); Mean Corpuscular Volume 95 fL (80-100); Mean Platelet Volume 10.6 fL (9.1-12.4); NEUTROPHILS ABSOLUTE AUTO 3.18 K/mm3 (1.96-9.15); NEUTROPHILS PERCENT AUTO 70 % (41-73); Platelet Count 142 K/mm3 (150-400); RDW Coefficient Variation 17.6 % (11.7-14.2); RDW Standard Deviation 60.8 fL (35.1-46.3); Red Blood Cell Count 2.85 M/mm3 (4.30-5.90); White Blood Cell Count 4.52 K/mm3 (4.00-11.30)
[2022-01-10 05:51] LABS: Calcium, Blood 8.8 mg/dL (8.5-10.1); Creatinine, Blood 1.19 mg/dL (0.60-1.20); Potassium, Blood 4.9 mmol/L (3.5-5.5)
--- NOTE | 2022-01-10 12:13 | NUR ---
PATIENT APPEARS TO BE HALLUCINATING AND APPEARS TO HAVE SOME PARANOIA. HE ASKED THIS HAZARDOUS MATERIALS TANKER DRIVER TO SHUT HIS BLINDS BECAUSE THE PEOPLE OUTSIDE ARE WATCHING HIM. AFFTER TELLING HIM THAT NO ONE WAS THERE, HE STATES THEY ARE IN THE TRUCK. THERE WAS A TRUCK IN THE PARKING LOT, BUT NO ONE WAS INSIDE. PATIENT ASKED ABOUT THE KIDS PLAYING IN THE HALLWAY- STATES HE HEARS KIDS YELLING. MAY HAVE MISTAKEN NURSES VOICES TO BE CHILDREN, BUT NOTED IN CASE OTHERWISE. WOUND DRESSINGS CHANGED. WEEPING PRESENT ESPECIALLY IN LEFT LOWER EXTREMITY. DRAINIAGE IS KIM/YELLOW. SOME SCANT BLOODY DRAINAGE IN THE RIGHT. HEART STILL IRREGULAR- NO PAIN OR OTHER CARDIAC SYMPTOMS. DR. REYES IN AND ASSESSED PATIENT THIS AM. REVIEWING MEDS AND INSPECTED WOUNDS THEY WERE REDRESSED.
--- NOTE | 2022-01-10 17:15 | NUR ---
PATIENT IS COOPERATIVE AND WILLING TO COMPLY WITH ALL CARE. PATIENT DOES HAVE PAIN AND IS EFFECTIVELY TREATED WITH PO PAIN MED. THE LEGS STILL HURT WITH MOVEMENT EVEN AFTER PAIN MEDICATION, HOWEVER IF HE IS LYING STILL THE PAIN IS TAKEN DOWN TO ZERO. OXYCODONE 2 X TODAY. HE DID HAVE PT TODAY AND DID GREAT. THEY WORKED ON EXERCISES IN BED ONLY, NOT UP ON HIS FEET. HE DID REPORT SOME HALLUCINATION AND PARANOIA TODAY- SEE NURSING NOTE FOR DETAIL. WOUND CARE COMPLETED-DRAINAGE DOES HAVE AN ODOR. HEART RHYTHM SOUNDS LIKE AFIB. HE HAS NO CARDIAC SYMPTOMS OTHER THAN THAT. SAN PATENT- NO BM TODAY.
--- NOTE | 2022-01-11 04:13 | NUR ---
Patient with hypotension overnight. C/O needing to have BM. will pass onto dayshift to ask for bowel regime. Patient able to turn self inthe bed. Patient allowed repositioing to right side during night. Both scrotum and buttocks skin with open areas. Barrier cream and antifungal powder applied. Patient with intermittent confusion overnight. Thought he heard fighting in the fall and wanted to know if I had called 911. I reassured patient he was safe and that it was only the hospital staff out in the fall. moderate c/o LLE pain. See MAR.
[2022-01-11 05:04] LABS: BASOPHILS ABSOLUTE AUTO 0.02 K/mm3 (0.00-0.23); BASOPHILS PERCENT AUTO 0 % (0-2); EOSINOPHILS PERCENT AUTO 2 % (0-6); Hematocrit 24.6 % (37.0-53.0); Hemoglobin 7.3 g/dL (13.5-17.5); IMMATURE GRAN ABSOLUTE AUTO 0.05 K/mm3 (0.00-0.10); IMMATURE GRAN PERCENT AUTO 1 % (0-1); LYMPHOCYTES ABSOLUTE AUTO 0.74 K/mm3 (0.84-5.20); LYMPHOCYTES PERCENT AUTO 15 % (21-46); MONOCYTES ABSOLUTE AUTO 0.56 K/mm3 (0.16-1.47); MONOCYTES PERCENT AUTO 11 % (4-13); Mean Corpuscular HGB 28.1 pg (26.0-34.0); Mean Corpuscular HGB Conc 29.7 g/dL (31.5-36.5); Mean Corpuscular Volume 95 fL (80-100); Mean Platelet Volume 9.9 fL (9.1-12.4); NEUTROPHILS ABSOLUTE AUTO 3.53 K/mm3 (1.96-9.15); NEUTROPHILS PERCENT AUTO 71 % (41-73); Platelet Count 138 K/mm3 (150-400); RDW Coefficient Variation 17.1 % (11.7-14.2); RDW Standard Deviation 59.3 fL (35.1-46.3)
[2022-01-11 05:31] LABS: Bun/Creatinine Ratio 17.2 (12.0-20.0); Calcium, Blood 8.7 mg/dL (8.5-10.1); Creatinine, Blood 1.16 mg/dL (0.60-1.20); Potassium, Blood 4.3 mmol/L (3.5-5.5)
--- NOTE | 2022-01-11 18:31 | NUR ---
SHIFT SUMMARY PT A&O X 4. VSS. MEDICATED PT PER EMAR THROUGHOUT SHIFT REQUESTED FOR C/O BILAT LE PAIN WITH GOOD RESULTS. BILAT LE'S DRESSED WITH GAUZE WRAP. DRESSINGS REMAIN CLEAN, DRY & INTACT. REINFORCED DRESSINGS AT END OF SHIFT. PT IS ABLE TO ROLL SIDE TO SIDE IN THE BED TO HELP WITH PERSONAL CARE. SKIN INTACT. DESENEX POWDER APPLIED WITH CLEAN UP OF BM AND LINEN CHANGE. PLAN IS TO DC TO REHAB WHEN CLINICALLY ABLE.
--- NOTE | 2022-01-12 04:47 | NUR ---
patient with VSS on RA overnight. moderate c/o LLE pain. patient allowing repositioning to right side overnight. Casandra area excoriation improving. Patient still with minimal ability to move himself around in the bed. Patient will need SNF at [place].
[2022-01-12 05:08] LABS: BASOPHILS ABSOLUTE AUTO 0.01 K/mm3 (0.00-0.23); BASOPHILS PERCENT AUTO 0 % (0-2); EOSINOPHILS PERCENT AUTO 3 % (0-6); Hematocrit 23.8 % (37.0-53.0); Hemoglobin 7.1 g/dL (13.5-17.5); IMMATURE GRAN ABSOLUTE AUTO 0.07 K/mm3 (0.00-0.10); IMMATURE GRAN PERCENT AUTO 2 % (0-1); LYMPHOCYTES PERCENT AUTO 18 % (21-46); MONOCYTES PERCENT AUTO 13 % (4-13); Mean Corpuscular HGB 28.2 pg (26.0-34.0); Mean Corpuscular HGB Conc 29.8 g/dL (31.5-36.5); Mean Corpuscular Volume 94 fL (80-100); NEUTROPHILS ABSOLUTE AUTO 2.56 K/mm3 (1.96-9.15); NEUTROPHILS PERCENT AUTO 65 % (41-73); Platelet Count 157 K/mm3 (150-400); RDW Coefficient Variation 17.2 % (11.7-14.2); RDW Standard Deviation 59.6 fL (35.1-46.3); Red Blood Cell Count 2.52 M/mm3 (4.30-5.90); White Blood Cell Count 3.94 K/mm3 (4.00-11.30)
[2022-01-12 05:24] LABS: Bun/Creatinine Ratio 14.6 (12.0-20.0); Calcium, Blood 8.6 mg/dL (8.5-10.1); Creatinine, Blood 1.03 mg/dL (0.60-1.20); Magnesium, Blood 1.9 mg/dL (1.6-2.4)
--- NOTE | 2022-01-12 17:06 | NUR ---
DAYSHIFT SUMMARY Pt in bed all shift, worked with therapy today but did not get OOB. Pt reports severe constant pain BLE. BLE dressing saturated with serous drainage. Cleansed wounds, and applied calcium algenate to LBE, and xeroform to RLE, wrapped each leg with kerlix. Pt was able to help during dressing changes, he lifted each leg and held, while dressings applied. SBP >135 midodrine held today. Pt painful & requested oxycodone & tylenol for pain, pt reported PRNs uneffective. Pt asking for NSAID shot, aware. Vitals stable, no other concerns at this time.
--- NOTE | 2022-01-13 04:52 | NUR ---
SHIFT SUMMARY NOC: PT HAVING 7-9/10 PAIN TO BILATERAL LEGS WITH SCHEDULED OXYCONTIN AND PRN OXYCODONE 10 MG EVERY 4 HOURS. PT DID NOT GET OUT OF BED ON VICE PRESIDENT FOR PHILANTHROPY. PT STATES HE WILL WORK WITH PT/OT TODAY. PT HEART RATE AFIB UP TO 130'S AT START OF SHIFT. PRN METOPROLOL GIVEN. HEART RATE DOWN TO 90-110'S.
[2022-01-13 05:43] LABS: BASOPHILS ABSOLUTE AUTO 0.01 K/mm3 (0.00-0.23); BASOPHILS PERCENT AUTO 0 % (0-2); EOSINOPHILS ABSOLUTE AUTO 0.04 K/mm3 (0.00-0.68); EOSINOPHILS PERCENT AUTO 1 % (0-6); Hematocrit 24.9 % (37.0-53.0); Hemoglobin 7.4 g/dL (13.5-17.5); IMMATURE GRAN ABSOLUTE AUTO 0.08 K/mm3 (0.00-0.10); IMMATURE GRAN PERCENT AUTO 3 % (0-1); LYMPHOCYTES ABSOLUTE AUTO 0.68 K/mm3 (0.84-5.20); LYMPHOCYTES PERCENT AUTO 21 % (21-46); MONOCYTES ABSOLUTE AUTO 0.47 K/mm3 (0.16-1.47); MONOCYTES PERCENT AUTO 15 % (4-13); Mean Corpuscular HGB 27.9 pg (26.0-34.0); Mean Corpuscular HGB Conc 29.7 g/dL (31.5-36.5); Mean Corpuscular Volume 94 fL (80-100); NEUTROPHILS ABSOLUTE AUTO 1.91 K/mm3 (1.96-9.15); NEUTROPHILS PERCENT AUTO 60 % (41-73); Platelet Count 203 K/mm3 (150-400); RDW Standard Deviation 58.6 fL (35.1-46.3); Red Blood Cell Count 2.65 M/mm3 (4.30-5.90); White Blood Cell Count 3.19 K/mm3 (4.00-11.30)
[2022-01-13 05:46] LABS: Bun/Creatinine Ratio 12.8 (12.0-20.0); Calcium, Blood 8.8 mg/dL (8.5-10.1); Creatinine, Blood 1.09 mg/dL (0.60-1.20)
--- NOTE | 2022-01-13 16:29 | NUR ---
DAY SHIFT SUMMARY 61 YR OLD MALE PT WITH SEPSIS AND WOUNDS TO LEGS. WOUND CARE PROVIDED PER ORDER. XR OF LT FOOT PERFORMED. PT ON RA AND REGULAR DIET. TELE D/C'D THIS SHIFT. PT ABLE TO AMBULATE TO CHAIR AT BEDSIDE AND TO BSC WITH WALKER/GAIT BELT/AND 2 PERSON ASSIST. CALL LIGHT WITHIN REACH AND ABLE TO CALL APPROPRIATELY. MEDICATED FOR PAIN PER EMAR.
[2022-01-14 06:06] LABS: BASOPHILS ABSOLUTE AUTO 0.02 K/mm3 (0.00-0.23); BASOPHILS PERCENT AUTO 1 % (0-2); EOSINOPHILS ABSOLUTE AUTO 0.06 K/mm3 (0.00-0.68); EOSINOPHILS PERCENT AUTO 2 % (0-6); Hematocrit 25.1 % (37.0-53.0); Hemoglobin 7.4 g/dL (13.5-17.5); IMMATURE GRAN ABSOLUTE AUTO 0.05 K/mm3 (0.00-0.10); IMMATURE GRAN PERCENT AUTO 1 % (0-1); LYMPHOCYTES ABSOLUTE AUTO 0.84 K/mm3 (0.84-5.20); LYMPHOCYTES PERCENT AUTO 22 % (21-46); MONOCYTES ABSOLUTE AUTO 0.39 K/mm3 (0.16-1.47); MONOCYTES PERCENT AUTO 10 % (4-13); Mean Corpuscular HGB 27.7 pg (26.0-34.0); Mean Corpuscular HGB Conc 29.5 g/dL (31.5-36.5); Mean Corpuscular Volume 94 fL (80-100); Mean Platelet Volume 9.3 fL (9.1-12.4); NEUTROPHILS PERCENT AUTO 64 % (41-73); Platelet Count 226 K/mm3 (150-400); RDW Coefficient Variation 16.8 % (11.7-14.2); RDW Standard Deviation 57.9 fL (35.1-46.3); Red Blood Cell Count 2.67 M/mm3 (4.30-5.90); White Blood Cell Count 3.76 K/mm3 (4.00-11.30)
[2022-01-14 06:20] LABS: Bun/Creatinine Ratio 15.7 (12.0-20.0); Calcium, Blood 8.8 mg/dL (8.5-10.1); Creatinine, Blood 0.95 mg/dL (0.60-1.20); Potassium, Blood 3.8 mmol/L (3.5-5.5)
--- NOTE | 2022-01-14 06:45 | NUR ---
SHIFT SUMMARY NOC: PT LEFT HAND/KNUCKLES SHOWS SWELLING AND PAIN THIS MORNING. PT GIVEN ICE PACK AND HAND ELEVATED. DRESSINGS CHANGED TO RIGHT AND LEFT LEG, PT TOLERATED WELL. PT IS 1-2 ASSIST BSC. PT IS PLEASANT AND COOPERATIVE WITH CARE.
--- NOTE | 2022-01-14 19:30 | NUR ---
PT HAS BEEN GETTING UP TO USE THE BEDSIDE COMMODE TODAY SINCE HAVING HIS SAN DC'D. PT HAS BEEN PAINFUL AND RECIEVING HIS MEDICATIONS SCHEDULED AND WITH PRNS. PT IS ALSO COMPLAINING OF PAIN IN HIS HANDS AND BOTTOMS OF HIS FEET. IS AWARE. STILL WAITING FOR PLACMENT TO SNF.
--- NOTE | 2022-01-15 05:57 | NUR ---
SHIFT SUMMARY: NO SIGNIFICANT EVENTS ON NOC. PAIN TREATED PER EMAR. PATIENT REMAINS UNSTEADY ON HIS FEET, IMPROPER USE OF WALKER, REQUIRES LOTS OF COACHING. 1-2PA TO BSC FOR BOWEL MOVEMENTS, USING URINAL INDEPENDENTLY IN BED.
--- NOTE | 2022-01-15 18:39 | NUR ---
SHIFT SUMMARY PATIENT A&0X4. 1PA TO [facility] WITH WALKER. C/O PAIN, MEDICATED PER MAR X3. WOUNDS ON BLE. DRESSING CHANGED. NO SIGNIFICANT EVENTS. WILL CONTINUE TO MONITOR.
--- NOTE | 2022-01-16 05:24 | NUR ---
SHIFT SUMMARY ASSUMED CARE OF PT AROUND 1900. PT IS A/OX4. HEART SOUNDS REGULAR, LUNG SOUNDS CLEAR. ABD FIRM, PT STATES NORMAL. PT WAS INDENDENT TO BSC AND WITH URINAL. PT WOUNDS WERE DRESSED. L LEG WOUND WAS WEEPING. PT HAD NO NEW COMPLAINTS, OTHER THAN WANTING HIS PAIN MEDCATIONS.
[2022-01-16] MEDS ORDERED: ALLO100 PO (14:49)
[2022-01-16] MEDS ORDERED: BANATROL PLUS1 EAC1 PO (14:49)
[2022-01-16 14:50] LABS: Influenza A, PCR NEGATIVE (NEGATIVE); Influenza B, PCR NEGATIVE (NEGATIVE); Resp Syncytial Virus, PCR NEGATIVE (NEGATIVE); SARS-Cov-2 (COVID-19) PCR, MMC NEGATIVE (NEGATIVE)
[2022-01-16] MEDS ORDERED: EUTHYROX25 MCG PO (14:50)
[2022-01-16] MEDS ORDERED: Lopressor 25 mg25 MG PO (14:51)
[2022-01-16] MEDS ORDERED: LINE600 PO (14:51)
[2022-01-16] MEDS ORDERED: XARELTO20 MG PO (14:52)
[2022-01-16] MEDS ORDERED: VISBIOME 112.51 EACH PO (14:53)
--- NOTE | 2022-01-16 16:09 | NUR ---
DISCHARGE SUMMARY PATIENT BEING DISCHARGED TO [facility]. REPORT CALLED TO NATHAN ALCARAZ. ALL QUESTIONS ANSWERED. REPORTED LAST DOSE OF PAIN MEDICATION AT 1400. PATIENT HAS BEEN ON OXYCODONE AND ASKING FOR IT MULTIPLE TIMES T/O SHIFT. CONFIRMED WITH DOCTOR THAT PAIN PRESCRIPTIONS WERE NOT BEING SENT WITH PATIENT AND THAT DOCTOR WANTS HIM SWITCHED TO TYLENOL. IV D/C'D. ALL BELONGINGS ALREADY PACKED AND AWAITING TRANSPORT SCHEDULED FOR 268.
== END 2022-01-16 17:09 | DRG 871 ==
LOC: ER 08:15 → ICUW 14:59 → MEDS 01-08 21:44
PROVIDERS: Internal Medicine; Nurse Practitioner Acute Care; Student in an Organized Health Care Education/Training Program; ADMIT Internal Medicine
PROC: 30233N1 Transfusion of Nonautologous Red Blood Cells into Peripheral Vein, Percutaneous Approach (ICD-10-PCS; principal; 2022-01-07)
PROC: HZ2ZZZZ Detoxification Services for Substance Abuse Treatment (ICD-10-PCS; 2022-01-07)
PROC: 3E03329 Introduction of Other Anti-infective into Peripheral Vein, Percutaneous Approach (ICD-10-PCS; 2022-01-07)
PROC: 3E033XZ Introduction of Vasopressor into Peripheral Vein, Percutaneous Approach (ICD-10-PCS; 2022-01-07)
DX: A41.02 Sepsis due to Methicillin resistant Staphylococcus aureus (principal); R65.21 Severe sepsis with septic shock; R57.1 Hypovolemic shock; N17.9 Acute kidney failure, unspecified; L03.115 Cellulitis of right lower limb; L03.116 Cellulitis of left lower limb; N39.0 Urinary tract infection, site not specified; K92.2 Gastrointestinal hemorrhage, unspecified; E87.1 Hypo-osmolality and hyponatremia; R18.8 Other ascites; D62 Acute posthemorrhagic anemia; I12.9 Hypertensive chronic kidney disease with stage 1 through stage 4 chronic kidney disease, or unspecified chronic kidney disease; Z20.822 Contact with and (suspected) exposure to COVID-19; R19.7 Diarrhea, unspecified; N18.9 Chronic kidney disease, unspecified; F15.10 Other stimulant abuse, uncomplicated; E80.6 Other disorders of bilirubin metabolism; R79.89 Other specified abnormal findings of blood chemistry; E86.1 Hypovolemia; B37.9 Candidiasis, unspecified; E66.01 Morbid (severe) obesity due to excess calories; D63.1 Anemia in chronic kidney disease; F10.20 Alcohol dependence, uncomplicated; B95.1 Streptococcus, group B, as the cause of diseases classified elsewhere; I48.91 Unspecified atrial fibrillation; E86.0 Dehydration; M10.9 Gout, unspecified; D50.9 Iron deficiency anemia, unspecified; Z68.34 Body mass index [BMI] 34.0-34.9, adult; E03.9 Hypothyroidism, unspecified; G89.29 Other chronic pain; M79.661 Pain in right lower leg; M79.662 Pain in left lower leg; Z79.899 Other long term (current) drug therapy
CPT/HCPCS: 0241U; 36415; 36430; 51701; 51702; 71045; 73620; 80048; 80053; 81001; 82272; 82565; 82728; 83540; 83550; 83605; 83735; 83880; 84439; 84443; 84481; 84484; 84550; 85025; 85610; 85730; 86430; 86850; 86900; 86901; 86923; 87040; 87070; 87075; 87077; 87086; 87147; 87186; 87205; 87493; 93005; 93010; 93306; 96365-59; 96375-59; 97110; 97162; 97530; 99285-25; A9270; C1751; C9113; G0480; J0692; J0696; J1650; J1940; J2020; J2370; J2916; J3010; J3370; J7030; J7040; J7060; J7512; P9016

== ENCOUNTER → 2022-04-20 | Outpatient (CLI) | payer OTHER ==
[~2022-04-20] MED LIST changes: +ALLO100 PO; +BANATROL PLUS1 EAC1 PO; +EUTHYROX25 MCG PO; +LINE600 PO; +Lopressor 25 mg25 MG PO; +XARELTO20 MG PO
[2022-04-20 16:04] LABS: BASOPHILS ABSOLUTE AUTO 0.02 K/mm3 (0.00-0.23); BASOPHILS PERCENT AUTO 0 % (0-2); EOSINOPHILS ABSOLUTE AUTO 0.13 K/mm3 (0.00-0.68); EOSINOPHILS PERCENT AUTO 3 % (0-6); Hematocrit 27.5 % (37.0-53.0); Hemoglobin 8.9 g/dL (13.5-17.5); IMMATURE GRAN ABSOLUTE AUTO 0.01 K/mm3 (0.00-0.10); IMMATURE GRAN PERCENT AUTO 0 % (0-1); LYMPHOCYTES PERCENT AUTO 21 % (21-46); MONOCYTES ABSOLUTE AUTO 0.48 K/mm3 (0.16-1.47); MONOCYTES PERCENT AUTO 10 % (4-13); Mean Corpuscular HGB 30.9 pg (26.0-34.0); Mean Corpuscular HGB Conc 32.4 g/dL (31.5-36.5); Mean Corpuscular Volume 96 fL (80-100); Mean Platelet Volume 9.2 fL (9.1-12.4); NEUTROPHILS ABSOLUTE AUTO 3.05 K/mm3 (1.96-9.15); NEUTROPHILS PERCENT AUTO 65 % (41-73); Platelet Count 209 K/mm3 (150-400); RDW Coefficient Variation 17.6 % (11.7-14.2); RDW Standard Deviation 61.5 fL (35.1-46.3); Red Blood Cell Count 2.88 M/mm3 (4.30-5.90); White Blood Cell Count 4.69 K/mm3 (4.00-11.30)
[2022-04-20 16:32] LABS: Albumin/Globulin Ratio 0.6 (0.8-1.8); Bilirubin, Total 0.4 mg/dL (0.1-1.0); Bun/Creatinine Ratio 15.7 (12.0-20.0); Calcium, Blood 8.9 mg/dL (8.5-10.1); Creatinine, Blood 0.89 mg/dL (0.60-1.20); Globulin, Blood 4.7 g/dL (2.2-4.0); Potassium, Blood 3.5 mmol/L (3.5-5.5); Total Protein, Blood 7.7 g/dL (6.4-8.2); Uric Acid, Blood 7.6 mg/dL (3.5-7.2)
== END ==
LOC: LAB SHORT 15:15 → LAB 15:15
PROVIDERS: Family Medicine
DX: E79.0 Hyperuricemia without signs of inflammatory arthritis and tophaceous disease (principal); Z51.81 Encounter for therapeutic drug level monitoring; G72.49 Other inflammatory and immune myopathies, not elsewhere classified
CPT/HCPCS: 80053; 84550; 85025

== ENCOUNTER → 2022-05-15 | Outpatient (CLI) | payer OTHER ==
[2022-05-15 13:58] LABS: BASOPHILS ABSOLUTE AUTO 0.01 K/mm3 (0.00-0.23); BASOPHILS PERCENT AUTO 0 % (0-2); EOSINOPHILS ABSOLUTE AUTO 0.09 K/mm3 (0.00-0.68); EOSINOPHILS PERCENT AUTO 3 % (0-6); Hematocrit 28.1 % (37.0-53.0); Hemoglobin 8.8 g/dL (13.5-17.5); IMMATURE GRAN ABSOLUTE AUTO 0.01 K/mm3 (0.00-0.10); IMMATURE GRAN PERCENT AUTO 0 % (0-1); LYMPHOCYTES ABSOLUTE AUTO 0.94 K/mm3 (0.84-5.20); LYMPHOCYTES PERCENT AUTO 27 % (21-46); MONOCYTES ABSOLUTE AUTO 0.38 K/mm3 (0.16-1.47); MONOCYTES PERCENT AUTO 11 % (4-13); Mean Corpuscular HGB 30.3 pg (26.0-34.0); Mean Corpuscular HGB Conc 31.3 g/dL (31.5-36.5); Mean Corpuscular Volume 97 fL (80-100); Mean Platelet Volume 9.7 fL (9.1-12.4); NEUTROPHILS ABSOLUTE AUTO 2.05 K/mm3 (1.96-9.15); NEUTROPHILS PERCENT AUTO 59 % (41-73); Platelet Count 215 K/mm3 (150-400); RDW Coefficient Variation 15.4 % (11.7-14.2); White Blood Cell Count 3.48 K/mm3 (4.00-11.30)
== END | disposition home or self-care (01) ==
LOC: LAB HH 12:45
PROVIDERS: Family Medicine
DX: N18.9 Chronic kidney disease, unspecified (principal); D63.1 Anemia in chronic kidney disease; D50.9 Iron deficiency anemia, unspecified
CPT/HCPCS: 85025

== ENCOUNTER → 2022-07-31 | Outpatient (CLI) | payer OTHER ==
[2022-07-31 15:56] LABS: BASOPHILS ABSOLUTE AUTO 0.04 K/mm3 (0.00-0.23); BASOPHILS PERCENT AUTO 0 % (0-2); EOSINOPHILS ABSOLUTE AUTO 0.08 K/mm3 (0.00-0.68); EOSINOPHILS PERCENT AUTO 1 % (0-6); Hematocrit 31.4 % (37.0-53.0); Hemoglobin 10.2 g/dL (13.5-17.5); IMMATURE GRAN PERCENT AUTO 1 % (0-1); LYMPHOCYTES ABSOLUTE AUTO 1.19 K/mm3 (0.84-5.20); LYMPHOCYTES PERCENT AUTO 10 % (21-46); MONOCYTES ABSOLUTE AUTO 0.86 K/mm3 (0.16-1.47); MONOCYTES PERCENT AUTO 7 % (4-13); Mean Corpuscular HGB 28.8 pg (26.0-34.0); Mean Corpuscular HGB Conc 32.5 g/dL (31.5-36.5); Mean Corpuscular Volume 89 fL (80-100); Mean Platelet Volume 9.6 fL (9.1-12.4); NEUTROPHILS ABSOLUTE AUTO 9.34 K/mm3 (1.96-9.15); NEUTROPHILS PERCENT AUTO 81 % (41-73); Platelet Count 236 K/mm3 (150-400); RDW Coefficient Variation 16.1 % (11.7-14.2); RDW Standard Deviation 52.9 fL (35.1-46.3); Red Blood Cell Count 3.54 M/mm3 (4.30-5.90); White Blood Cell Count 11.61 K/mm3 (4.00-11.30)
[2022-07-31 16:49] LABS: Albumin, Blood 2.7 g/dL (3.4-5.0); Albumin/Globulin Ratio 0.5 (0.8-1.8); Bilirubin, Total 0.8 mg/dL (0.1-1.0); Calcium, Blood 9.1 mg/dL (8.5-10.1); Globulin, Blood 5.5 g/dL (2.2-4.0); Potassium, Blood 3.6 mmol/L (3.5-5.5); Total Protein, Blood 8.2 g/dL (6.4-8.2)
== END | disposition home or self-care (01) ==
LOC: LAB SHORT 15:02 → LAB 15:02
PROVIDERS: Family Medicine
DX: I48.19 Other persistent atrial fibrillation (principal)
CPT/HCPCS: 80053; 85025

== ENCOUNTER → 2022-09-03 | Outpatient (CLI) | payer OTHER | END | disposition home or self-care (01) | LOC: LAB 14:40 → LAB SHORT 14:40 | DX: L97.222 Non-pressure chronic ulcer of left calf with fat layer exposed (principal) | CPT/HCPCS: 87070; 87075; 87205 ==

== ENCOUNTER 2022-11-18 15:53 | Inpatient (IN) | payer OTHER ==
[2022-11-18] VITALS (10 sets, daily range): BP systolic 91–125; BP diastolic 59–84
[~2022-11-18] VITALS: Ht 182.9 cm; Wt 123.3 kg
[2022-11-18 16:35] LABS: Hemoglobin 7.5 g/dL (13.5-17.5); Mean Corpuscular HGB 28.8 pg (26.0-34.0); Mean Corpuscular HGB Conc 31.3 g/dL (31.5-36.5); Mean Corpuscular Volume 92 fL (80-100); Mean Platelet Volume 9.1 fL (9.1-12.4); Platelet Count 212 K/mm3 (150-400); RDW Coefficient Variation 16.3 % (11.7-14.2); RDW Standard Deviation 55.6 fL (35.1-46.3); White Blood Cell Count 6.93 K/mm3 (4.00-11.30)
[2022-11-18 16:45] LABS: Magnesium, Blood 2.4 mg/dL (1.6-2.4)
[2022-11-18 16:54] LABS: Bun/Creatinine Ratio 19.3 (12.0-20.0); Calcium, Blood 7.4 mg/dL (8.5-10.1); Creatinine, Blood 5.24 mg/dL (0.60-1.20); Potassium, Blood 4.7 mmol/L (3.5-5.5)
[2022-11-18 17:00] LABS: Bicarbonate Venous 8.6 mmol/L (24.0-30.0); PCO2 Venous 27.2 mmHg (38-42); pH Blood Venous 7.05 (7.34-7.37)
[2022-11-18 17:20] LABS: BAND PERCENT MAN 2 % (0-8); BASOPHILS PERCENT MAN 0 % (0-2); EOSINOPHILS PERCENT MAN 0 % (0-6); LYMPHOCYTES PERCENT MAN 13 % (21-46); METAMYELOCYTE ABSOLUTE MAN 0.13 K/mm3 (0.00-0.00); METAMYELOCYTE PERCENT MAN 2 % (0-0); MONOCYTES ABSOLUTE MAN 0.48 K/mm3 (0.16-1.47); MONOCYTES PERCENT MAN 7 % (4-13); MYELOCYTE ABSOLUTE MAN 0.06 K/mm3 (0.00-0.00); MYELOCYTE PERCENT MAN 1 % (0-0); NEUTROPHILS ABSOLUTE MAN 5.33 K/mm3 (1.96-9.15); SEG NEUTROPHILS PERCENT MAN 75 % (41-73); TOTAL CELLS COUNTED 100
[2022-11-18 18:38] LABS: Source, Urine Foley catheter
[2022-11-18 18:56] LABS: Appearance, Urine Clear (Clear); Bilirubin, Urine Neg (Neg); Blood, Urine 1+ (Neg); Color, Urine Yellow (P-Yellow); Glucose Qualitative, Urine Neg (Neg); Ketones, Urine Neg (Neg); Leukocyte Esterase, Urine Neg (Neg); Nitrite, Urine Neg (Neg); Protein, Urine 2+ (Neg); Specific Gravity, Urine 1.015 (1.003-1.022); Urobilinogen, Urine NORM (Normal)
[2022-11-18 19:20] LABS: Bacteria Few /hpf; Calcium Oxalate Crystals Rare /hpf; Squamous Epithelial Cells Few /hpf (Few); White Blood Cells, Urine 0-2 /hpf (0-5)
[2022-11-18 20:52] LABS: International Normalized Ratio 1.19; Prothrombin Time Results 12.4 Sec (9.7-11.5)
[2022-11-18 20:53] LABS: Percent Saturation 25.1 % (20.0-50.0); Uric Acid, Blood 5.1 mg/dL (3.5-7.2)
[2022-11-18 20:56] LABS: Thyroid Stimulating Hormone 1.34 uIU/mL (0.360-4.800)
[2022-11-18 22:27] LABS: Base Excess Venous -23.3 mmol/L; Bicarbonate Venous 8.3 mmol/L (24.0-30.0); pH Blood Venous 7.03 (7.34-7.37)
[2022-11-18 22:32] LABS: Hematocrit 23.9 % (37.0-53.0); Hemoglobin 7.5 g/dL (13.5-17.5)
[2022-11-19] VITALS (58 sets, daily range): BP systolic 82–153; BP diastolic 44–86
[2022-11-19 00:37] LABS: Bun/Creatinine Ratio 20.8 (12.0-20.0); Calcium, Blood 6.6 mg/dL (8.5-10.1); Creatinine, Blood 4.85 mg/dL (0.60-1.20); Potassium, Blood 4.3 mmol/L (3.5-5.5)
--- NOTE | 2022-11-19 02:35 | NUR ---
ARRIVED TO ICU AT 2140 PT ARRIVED TO ICU 7 AT 2140 VIA ED BED AND TRANSFERED OVER TO ICU BED WITH A SLIDE SHEET. ADMITED TO ICU FOR HYPOTENSION NEEDING TO BE ON LEVOPHED. HE IS A/O X4 AND ABLE TO MAKE HIS NEEDS KNOWN. MOBILITY LIMITED IN BLE D/T WOUNDS. SPO2 >94% ON RA. AFIB NOTED WITH RATE 110-140. LEVOPHED INFUSING AT 9MCG/MIN WHEN ARRIBED TO ICU; NOW LEVOPHED TITRATED DOWN TO 3MCG/MIN; SBP 100-120; MAP 70'S. ONE EPISODE OF SELF RESOLVING NAUSEA NOTED. SAN IN PLACE AND DRAINING TO GRAVITY. MOTTLING NOTED TO BILATERAL KNEES AND BILATERAL HANDS UP TO HIS ELBOWS; ALSO EXTENSIVE WOUNDS NOTED TO BLE, HX OF MRSA IN THESE WOUNDS; PICTURES TAKEN OF BOTH LEGS AND IN CHART; WOUNDS SLOUGHING; AREAS CLEANED WITH WOUND SPRAY FOLLOWED BY PLACING PETROLEUM GAUZE ON SLOUGHING AREAS AND THEN BOTH WRAPPED IN KURLEX GAUZE. PAIN NOTED TO BLE RATING 8/10; PRN FENTANYL GIVEN AND HELPFUL. SEE ADMISSION ASSESSMENT FOR FULL ASSESSMENT. BMP AND VBP DONE SHORTLY AFTER ARRIVING AND NOT SHOWING MUCH IMPROVMENT. FLUIDS CHANGED TO 1/2NS WITH BICARB; BICARB PUSH ALSO GIVEN; ONE UNIT OF PRBC'S STARTED. ADDITIONAL IV ACCESS NEEDED TO INFUSE MEDICATION; POWERGLIDE PLACED.
[2022-11-19 05:18] LABS: BASOPHILS ABSOLUTE AUTO 0.02 K/mm3 (0.00-0.23); BASOPHILS PERCENT AUTO 0 % (0-2); Base Excess Venous -19.9 mmol/L; Bicarbonate Venous 10.3 mmol/L (24.0-30.0); EOSINOPHILS ABSOLUTE AUTO 0.01 K/mm3 (0.00-0.68); EOSINOPHILS PERCENT AUTO 0 % (0-6); Hematocrit 22.6 % (37.0-53.0); Hemoglobin 7.3 g/dL (13.5-17.5); IMMATURE GRAN ABSOLUTE AUTO 0.36 K/mm3 (0.00-0.10); IMMATURE GRAN PERCENT AUTO 5 % (0-1); LYMPHOCYTES ABSOLUTE AUTO 0.43 K/mm3 (0.84-5.20); LYMPHOCYTES PERCENT AUTO 7 % (21-46); MONOCYTES ABSOLUTE AUTO 0.66 K/mm3 (0.16-1.47); MONOCYTES PERCENT AUTO 10 % (4-13); Mean Corpuscular HGB Conc 32.3 g/dL (31.5-36.5); Mean Corpuscular Volume 90 fL (80-100); Mean Platelet Volume 8.7 fL (9.1-12.4); NEUTROPHILS ABSOLUTE AUTO 5.15 K/mm3 (1.96-9.15); NEUTROPHILS PERCENT AUTO 78 % (41-73); NRBC ABSOLUTE 0.02 K/mm3 (0.00-0.02); NRBC Auto 0.3 /100 WBC (0.0-0.2); PCO2 Venous 31.8 mmHg (38-42); Platelet Count 151 K/mm3 (150-400); RDW Standard Deviation 51.7 fL (35.1-46.3); Red Blood Cell Count 2.52 M/mm3 (4.30-5.90); White Blood Cell Count 6.63 K/mm3 (4.00-11.30)
[2022-11-19 06:24] LABS: Alanine Aminotransfer (ALT/SGP 7 U/L (12-78); Albumin, Blood 2.1 g/dL (3.4-5.0); Albumin/Globulin Ratio 0.5 (0.8-1.8); Alk Phos 47 U/L (50-136); Anion Gap 13 mmol/L (6-16); Aspartate Aminotrans (AST/SGOT 7 U/L (12-37); Bilirubin, Total 0.4 mg/dL (0.1-1.0); Blood Urea Nitrogen 99 mg/dL (8-24); Bun/Creatinine Ratio 20.8 (12.0-20.0); CO2, Blood 11 mmol/L (21-32); Calcium, Blood 6.6 mg/dL (8.5-10.1); Chloride, Blood 112 mmol/L (98-108); Creatinine, Blood 4.77 mg/dL (0.60-1.20); Globulin, Blood 3.9 g/dL (2.2-4.0); Glomerular Filtration Rate 13 (60-); Glucose, Blood 115 mg/dL (70-99); Magnesium, Blood 2.1 mg/dL (1.6-2.4); Potassium, Blood 3.9 mmol/L (3.5-5.5); Sodium, Blood 136 mmol/L (136-145); Vancomycin, Random 26.8 ug/mL
--- NOTE | 2022-11-19 07:23 | NUR ---
END OF SHIFT SUMMARY NO ACUTE EVENTS SINCE ADMISSION TO ICU. PT CONT TO BE A/O X4 AND ABLE TO MAKE HIS NEEDS KNOWN; ONE DOSE OF FENTANYL GIVEN FOR PAIN TO BLE. SPO2 >93% ON RA. AFIB NOTED WITH RATE 100-140; SBP 90-120; LEVOPHED ON SB SINCE 429. ONE EPISODE OF SELF RESOLVING NAUSEA; TOLERATING PO WATER WELL. SAN IN PLACE WITH 1400ML OUT PUT. BLE WOUNDS CONT TO WEEP. 1/2 NS WITH 2 AMPS BICARB INFUSING AT 150ML/HR; ONE UNIT OF PRBC GIVEN THIS SHIFT. REPORT GIVEN TO MELLISSA ALCARAZ.
--- NOTE | 2022-11-19 08:19 | NUR ---
11/19/22 0819 Vanessa Porras PRIOR TO PROCEDURE History, Chart, Medications and Allergies reviewed before start of procedure. DR HYDE PROVIDES ANESTHESIA
[2022-11-19 10:43] LABS: Hematocrit 21.7 % (37.0-53.0); Hemoglobin 6.8 g/dL (13.5-17.5)
--- NOTE | 2022-11-19 11:46 | NUR ---
REASSESSMENT PT HAD HIS EGD THIS MORNING AND TOLERATED IT WELL. HE IS NOW AWAKE, ALERT AND ORIENTED. HE HAS NOT HAD ANY EMESIS OR STOOLS. HIS REPEAT H/H/ WENT DOWN SO DR. GODOY NOTIFIED AND ORDER RECEIVED TO TRANSFUSE 1 MORE UNIT PRBC. ALSO REQUESTED CLARKE PAIN MEDICATION SINCE DR. SARMIENTO CLEARED PT FOR FULL LIQUIDS, BUT SHE WANTED TO JUST INCREASE FREQUENCY OF FENTANYL. ADITYA, WOUND RN, CAME BY AND EVALUATED PT. SHE RECOMMENDED SURGICAL DEBRIDEMENT AT THE BEDSIDE. DR. GODOY NOTIFIED AND ORDER PLACED. DR. ALLRED NOTIFIED FIRST, BUT HE ASKED FOR ORTHO TO BE NOTIFIED SO DR. GEORGE CALLED. ALSO GOT ORDER FOR WOUND CULTURES FROM THE LEGS. PT'S REMAINS ON RA WITH SPO2 95%. AFIB WITH RATE IN THE LOW 100S-120S WITH ACTIVITY. BOWEL TONES ACTIVE. TOLERATING WATER THIS MORNING AND EATING FULL LIQUIDS FOR LUNCH NOW. PROTONIX SWITCHED TO GTT PER DR. SARMIENTO AFTER SCOPE. SAN DRAINING CL YELLOW URINE.
[2022-11-19 14:44] LABS: Hematocrit 23.7 % (37.0-53.0); Hemoglobin 7.7 g/dL (13.5-17.5)
[2022-11-19 15:01] LABS: Calcium, Blood 6.5 mg/dL (8.5-10.1); Creatinine, Blood 4.18 mg/dL (0.60-1.20); Potassium, Blood 3.3 mmol/L (3.5-5.5)
--- NOTE | 2022-11-19 16:50 | NUR ---
SHIFT SUMMARY PT HAS BEEN RESTING IN BED TRYING TO GET SOME REST SINCE HIS EGD THIS AM. HE HAS NOT HAD ANY EMESIS OR STOOLS. HE RECEIVED 1 MORE UN[address] OF PRBC. DR. GEORGE CAME BY AND EVALUATED HIS WOUNDS THIS AFTERNOON. PLAN IS FOR PT TO HAVE THEM DEBRIDED IN THE OR TOMORROW, PT AWARE. WOUNDS REDRESSED WITH XEROFORM AND KERLEX. LUNGS REMAIN CLEAR, ON RA WITH SPO2 91%. AFIB, BP STABLE. REMAINED OFF OF LEVOPHED TODAY. TOLERATING FULL LIQUID DIET. LEGS REMAIN RED AND SWOLLEN. BLE HAVE BEEN ELEVATED ON PILLOWS THROUGHOUT THE DAY. MODERATE AMT OF SS DRAINAGE FROM EACH LEG. PT HAS BEEN UPDATING HIS FRIENDS VIA PHONE THIS AFTERNOON.
[2022-11-19 20:51] LABS: Hematocrit 22.2 % (37.0-53.0); Hemoglobin 7.3 g/dL (13.5-17.5)
--- NOTE | 2022-11-19 22:00 | NUR ---
ASSUMED CARE AT 1900 PT LAYING IN BED WATCHING TV AT SHIFT CHANGE. HE IS A/O X4 AND ABLE TO MAKE HIS NEEDS KNOWN; MORE SOMNULENT TODAY THAN PREVIOUS DAY; GENERALIZED WEAKNESS NOTED. SPO2 >94% ON RA. HR 90-100'S. BP STABLE; SBP 120'S. AFEBRILE. TOLERATING PO FLUDIS WELL. SAN IN PLACE AND DRAINING TO GRAVITY. BLE WRAPPED, SMALL AMOUNT OF WEEPING NOTED. PLAN TO BE NPO AT 0000. 1/2NS WITH BICARB INFUSING AT 150ML/HR. PROTONIX INFUSING. SEE SHIFT ASSESSMENT FOR FULL ASSESSMENT.
[2022-11-20] VITALS (45 sets, daily range): BP systolic 89–154; BP diastolic 47–97
[2022-11-20 05:02] LABS: BASOPHILS PERCENT AUTO 0 % (0-2); EOSINOPHILS ABSOLUTE AUTO 0.09 K/mm3 (0.00-0.68); EOSINOPHILS PERCENT AUTO 3 % (0-6); Hematocrit 20.2 % (37.0-53.0); Hemoglobin 6.7 g/dL (13.5-17.5); IMMATURE GRAN ABSOLUTE AUTO 0.14 K/mm3 (0.00-0.10); IMMATURE GRAN PERCENT AUTO 5 % (0-1); LYMPHOCYTES ABSOLUTE AUTO 0.56 K/mm3 (0.84-5.20); LYMPHOCYTES PERCENT AUTO 18 % (21-46); MONOCYTES ABSOLUTE AUTO 0.47 K/mm3 (0.16-1.47); MONOCYTES PERCENT AUTO 15 % (4-13); Mean Corpuscular HGB 28.8 pg (26.0-34.0); Mean Corpuscular HGB Conc 33.2 g/dL (31.5-36.5); Mean Corpuscular Volume 87 fL (80-100); Mean Platelet Volume 8.6 fL (9.1-12.4); NEUTROPHILS ABSOLUTE AUTO 1.86 K/mm3 (1.96-9.15); NEUTROPHILS PERCENT AUTO 60 % (41-73); Platelet Count 141 K/mm3 (150-400); RDW Coefficient Variation 16.4 % (11.7-14.2); RDW Standard Deviation 51.1 fL (35.1-46.3); Red Blood Cell Count 2.33 M/mm3 (4.30-5.90); White Blood Cell Count 3.12 K/mm3 (4.00-11.30)
[2022-11-20 05:27] LABS: Anion Gap 8 mmol/L (6-16); Blood Urea Nitrogen 84 mg/dL (8-24); Bun/Creatinine Ratio 23.5 (12.0-20.0); CO2, Blood 17 mmol/L (21-32); Calcium, Blood 6.1 mg/dL (8.5-10.1); Chloride, Blood 109 mmol/L (98-108); Creatinine, Blood 3.58 mg/dL (0.60-1.20); Glomerular Filtration Rate 19 (60-); Glucose, Blood 92 mg/dL (70-99); Sodium, Blood 134 mmol/L (136-145); Vancomycin, Random 16.7 ug/mL
--- NOTE | 2022-11-20 07:32 | NUR ---
END OF SHIFT SUMMARY NO ACUTE EVENTS OVERNIGHT. PT WAS ABLE TO SLEEP FOR ABOUT 2 HRS AT A TIME BEFORE HE WOULD WAKE UP IN PAIN FROM BLE. PRN FENTANYL GIVEN FREQUENTLY FOR BLE PAIN. PT IS A/O X4 AND ABLE TO MAKE HIS NEEDS KNOWN. AFEBRILE. SPO2 >98% ON RA. AFIB NOTED WITH RATE 90-100. BP STABLE; SBP 90-120. NO EPISODES OF NAUSEA, EMISIS, OR MELENA, NO BM THIS SHIFT, PT JUST STATES GAS; TOLERATED PO FLUID INTAKE VERY WELL UP TO 0000 WHERE HE WAS MADE NPO; ABD BEGINING TO BECOME MORE FIRM AT [address] WITH 1400ML URINE OUTPUT. NO CHANGES TO BLE WOUNDS, CONT TO WEEP AND BE VERY PAINFUL. PROTONIX GTT INFUSING. 1/2NS WITH BICARB INFUSING AT 150ML/HR. REPORT GIVEN TO CORA ALCARAZ MORNING LABS CALLED TO DR MARY. HBG WAS 6.8, ORDER RECIEVED TO INFUSE 1 UNIT OF PRBC. POTASSIUM 3.0, NEW ORDER FOR 40MEQ OF KCL. CALCIUM 6.1, NEW ORDER FOR CALCIUM GLUCONATE 1000MG. WITH THESE NEW MEDS AND BLOOD TO INFUSE; PT NEEDED MORE IV ACCESS. CORA ALCARAZ WAS ABLE TO PLACE A PICC LINE AT SHIFT CHANGE.
--- NOTE | 2022-11-20 08:53 | NUR ---
[place] of Care: Care assumed at 0700hr. Patient alert and oriented x4, sitting up in bed conversing with staff. VSS, spO2-98-100% on RA, denies any difficulty breathing. C/o pain to BLE's, prn fentanyl has been helpful, but patient would like more relief from pain. Will discuss better pain control with hospitalist this morning. PICC line placed to JORY by this RN at shift change, inserted without difficulty. Placement verified via chest x-ray, approval for use given by Dr. Luna. X2 peripheral IV's and x1 powerglide patent and intact. Mahmood cath patent and intact, draining clear yellow urine. BLE's with gauze wraps from below knee to ankle. Serous drainage noted to gauze wraps, will change dressing's this morning. Peripheral pulses positive via doppler, cap re-fill wnl. NOC shift RN reports patient is supposed to go to OR today with Dr. Dale for wound debriedment. Will keep patient NPO at this time. Will continue to monitor.
[2022-11-20 13:13] LABS: Hematocrit 23.2 % (37.0-53.0); Hemoglobin 7.8 g/dL (13.5-17.5)
[2022-11-20 13:30] LABS: Bun/Creatinine Ratio 24.8 (12.0-20.0); Calcium, Blood 6.6 mg/dL (8.5-10.1); Creatinine, Blood 3.03 mg/dL (0.60-1.20); Potassium, Blood 2.9 mmol/L (3.5-5.5)
--- NOTE | 2022-11-20 15:23 | NUR ---
PT PREPARED FOR PROCEDURE IN ROOM.
--- NOTE | 2022-11-20 18:50 | NUR ---
Shift Summary: No significant changes throughout shift. VS remain stable, spO2-98-100% on RA (while awake), did require 2L/NC while sleeping after returning from the OR. Patient went to OR with Dr. Dale at approx 1600hr. Bilateral wound debriedment to lower legs. Patient returned with dry-to-wet dressings and Titus wraps to BLE's. Both dressings C/D/I. Patient c/o pain to BLE's throughout day, prn fentanyl (50mcg) has been effective to manage pain. Mahmood cath remains patent and intact, draining clear yellow urine. Bedside report given to NOC shift RN.
[2022-11-21] VITALS (9 sets, daily range): BP systolic 86–117; BP diastolic 53–86
[2022-11-21 00:01] LABS: Bun/Creatinine Ratio 27.1 (12.0-20.0); Creatinine, Blood 2.51 mg/dL (0.60-1.20)
--- NOTE | 2022-11-21 04:30 | NUR ---
SHIFT SUMMARY/TRANSFER @ 0430 ASSUMED CARE OF AT 1915. PATIENT ALERT, ORIENTED X4. WEAKNESS IN BLE SECONDARY TO WOUNDS/PAIN. MONITOR SHOWING AFIB, HR CONTROLLED. SBP 90-120S, MAPS >65. AFEBRILE. RA-2L NC. DIFFICULTY MANAGING PAIN OVERNIGHT; PATIENT RECEIVING Q2 FENTANYL WITHOUT SUSTAINED RELIEF. NOTIFIED DR BURGOS AND GIVEN ORDER FOR X1 DOSE OF NORCO, WHICH (IN CONJUNCTION WITH DOSE OF FENTANYL) ALLOWED PATIENT RELIEF FROM HIS LEG PAIN FOR ROUGHLY AN HOUR. NOTIFIED DR BURGOS AGAIN AFTER MULTIPLE FENTANYL DOSES THAT PAIN REGIMEN SEEMS INEFFECTIVE PATIENT C/O 10/10 IN LEGS, DESCRIBED "BEE STINGS" ALL OLVER LOWER EXTREMITIES. GIVEN X1 DOSE OF DILAUDID, WHICH PATIENT REPORTS WORKED MUCH BETTER FOR HIM PAIN THAN THE FENTANYL. S/P OR DEBRIDEMENT, PATIENT'S DRESSING C/D/I TO BLE; WRAPPED IN COY WRAPS. HYPOKALEMIC AFTER 100MEQ IV POTASSIUM ON 11/20; NOTIFIED DR BURGOS AND GIVEN 40MEQ ORAL AND 40MEQ IV, STILL INFUSING. TRANSFERRED TO ROOM 354 VIA BED IN NO ACUTE DISTRESS AROUND 429, WITH BELONGINGS AT BEDSIDE TO INCLUDE CELLPHONE AND SUPERVISOR PARK WORKERS. NO FURTHER CONCERNS.
[2022-11-21 05:56] LABS: BASOPHILS ABSOLUTE AUTO 0.01 K/mm3 (0.00-0.23); BASOPHILS PERCENT AUTO 0 % (0-2); EOSINOPHILS PERCENT AUTO 4 % (0-6); Hematocrit 22.5 % (37.0-53.0); Hemoglobin 7.5 g/dL (13.5-17.5); IMMATURE GRAN ABSOLUTE AUTO 0.13 K/mm3 (0.00-0.10); IMMATURE GRAN PERCENT AUTO 5 % (0-1); LYMPHOCYTES ABSOLUTE AUTO 0.75 K/mm3 (0.84-5.20); LYMPHOCYTES PERCENT AUTO 26 % (21-46); MONOCYTES ABSOLUTE AUTO 0.47 K/mm3 (0.16-1.47); MONOCYTES PERCENT AUTO 16 % (4-13); Mean Corpuscular HGB 28.6 pg (26.0-34.0); Mean Corpuscular HGB Conc 33.3 g/dL (31.5-36.5); Mean Corpuscular Volume 86 fL (80-100); Mean Platelet Volume 9.3 fL (9.1-12.4); NEUTROPHILS ABSOLUTE AUTO 1.43 K/mm3 (1.96-9.15); NEUTROPHILS PERCENT AUTO 49 % (41-73); NRBC ABSOLUTE 0.02 K/mm3 (0.00-0.02); NRBC Auto 0.7 /100 WBC (0.0-0.2); Platelet Count 145 K/mm3 (150-400); RDW Coefficient Variation 16.5 % (11.7-14.2); RDW Standard Deviation 51.3 fL (35.1-46.3); Red Blood Cell Count 2.62 M/mm3 (4.30-5.90); White Blood Cell Count 2.89 K/mm3 (4.00-11.30)
[2022-11-21 06:13] LABS: Anion Gap 7 mmol/L (6-16); Blood Urea Nitrogen 60 mg/dL (8-24); Bun/Creatinine Ratio 26.7 (12.0-20.0); CO2, Blood 22 mmol/L (21-32); Calcium, Blood 7.7 mg/dL (8.5-10.1); Chloride, Blood 107 mmol/L (98-108); Creatinine, Blood 2.25 mg/dL (0.60-1.20); Glomerular Filtration Rate 32 (60-); Glucose, Blood 131 mg/dL (70-99); Potassium, Blood 3.2 mmol/L (3.5-5.5); Sodium, Blood 136 mmol/L (136-145); Vancomycin, Random 19.4 ug/mL
--- NOTE | 2022-11-21 07:26 | NUR ---
0430 PT ARRIVED TO FLOOR FROM ICU. PT TRANSFRED BY SLIDDER AND 5 STAFF TO BED. pT ALERT AND ORENTED X 4 Paz CATH DRAINING CLEAR YELLOW URINE. PT HAS MULTIPLE LINES OF MEDICATION AND FLUIDS RUNNING, PT HAS SL TO R LOWER ARM AND PICC TO RIGHT UPPER ARM. PT HAS POWER GLIDE TO LEFT UPPER ARM AND SL TO LEFT LOWER ARM. PT GIEND WATER TO DRINK AND REQUESTED ENSURE FOR A SNACK. CALL LIGHT IN REACH. PT REATING IN BED TRYING TO GO BACK TO SLEEP FOR A WHILE.
--- NOTE | 2022-11-21 17:47 | NUR ---
SHIFT SUMMARY: PT A&O X4. PT HAS BEEN COOPERATIVE WITH CARE THIS SHIFT. PT PAINFUL IN LOWER LEGS THIS SHIFT. PT STATES HE IS GOING TO SCREAM WITH WOUND CHANGES. DOSED PT WITH NEW ORDER OF NORCO. WILL ATTEMPT TO CHANGE WOUNDS BEFORE SHIFT CHANGE. SODIUM BICARD D/C. ONE TIME IV POTASSIUM GIVEN. PROTONIX CONTINUES TO RUN @10/HR. NS RUNNING @150/HR. PICC, POWERGLIDE, AND IV'S FLUSHING WELL W/O PAIN, SWELLING, OR REDNESS. SAN CATHETER DRAINING YELLOW URINE TO GRAVITY. PT C/O BLOATING/GAS THIS SHIFT. PT ON FULL LIQUID DIET. CALL LIGHT IN REACH. BED IN LOWEST POSITION. WILL CONTINUE TO MONITOR.
[2022-11-22] VITALS (11 sets, daily range): BP systolic 105–135; BP diastolic 55–86
[2022-11-22 05:42] LABS: Hematocrit 21.4 % (37.0-53.0); Mean Corpuscular HGB 28.9 pg (26.0-34.0); Mean Corpuscular HGB Conc 32.7 g/dL (31.5-36.5); Mean Corpuscular Volume 88 fL (80-100); Mean Platelet Volume 9.2 fL (9.1-12.4); NRBC ABSOLUTE 0.03 K/mm3 (0.00-0.02); NRBC Auto 0.9 /100 WBC (0.0-0.2); Platelet Count 126 K/mm3 (150-400); RDW Coefficient Variation 16.4 % (11.7-14.2); RDW Standard Deviation 52.8 fL (35.1-46.3); Red Blood Cell Count 2.42 M/mm3 (4.30-5.90)
[2022-11-22 06:05] LABS: BASOPHILS ABSOLUTE MAN 0.03 K/mm3 (0.00-0.23); BASOPHILS PERCENT MAN 1 % (0-2); EOSINOPHILS ABSOLUTE MAN 0.13 K/mm3 (0.00-0.68); EOSINOPHILS PERCENT MAN 4 % (0-6); LYMPHOCYTES ABSOLUTE MAN 0.69 K/mm3 (0.84-5.20); LYMPHOCYTES PERCENT MAN 21 % (21-46); MONOCYTES ABSOLUTE MAN 0.49 K/mm3 (0.16-1.47); MONOCYTES PERCENT MAN 15 % (4-13); MYELOCYTE ABSOLUTE MAN 0.06 K/mm3 (0.00-0.00); MYELOCYTE PERCENT MAN 2 % (0-0); NEUTROPHILS ABSOLUTE MAN 1.88 K/mm3 (1.96-9.15); SEG NEUTROPHILS PERCENT MAN 57 % (41-73); TOTAL CELLS COUNTED 100
[2022-11-22 06:08] LABS: Anion Gap 0 mmol/L (6-16); Blood Urea Nitrogen 42 mg/dL (8-24); Bun/Creatinine Ratio 25.9 (12.0-20.0); CO2, Blood 24 mmol/L (21-32); Calcium, Blood 8.2 mg/dL (8.5-10.1); Chloride, Blood 116 mmol/L (98-108); Creatinine, Blood 1.62 mg/dL (0.60-1.20); Glomerular Filtration Rate 48 (60-); Glucose, Blood 108 mg/dL (70-99); Potassium, Blood 3.3 mmol/L (3.5-5.5); Sodium, Blood 140 mmol/L (136-145); Vancomycin, Random 13.1 ug/mL
[2022-11-22 13:12] LABS: Hematocrit 21.4 % (37.0-53.0); Hemoglobin 6.8 g/dL (13.5-17.5)
--- NOTE | 2022-11-22 19:21 | NUR ---
SHIFT SUMMARY: PT A&O X4. PT PLEASANT AND COOPERATIVE WITH CARE. LOWER BLE WOUNDS CHANGED THIS AM. 50MCG FENTANYL GIVEN BEFORE WITH ONE TIME DOSE OF DILAUDID GIVEN AFTER. DRESSING CHANGE EXTREMELY PAINFUL. WOUND NURSE TO TAKE OVER CARE STARTING TOMORROW. HGB 6.8 THIS SHIFT. ONE UNIT PACKED RBC GIVEN. CURRENTLY RUNNING. PROTONIX RUNNING @ 10/HR. NS RUNNING @ 150/HR. PT TOLERATING PICC, PG, AND BOTH PERIPHERAL IV LINES WELL. CALL LIGHT IN REACH. BED IN LOWEST POSITION. REPORT GIVEN TO ONCOMING NURSE.
[2022-11-23 04:14] VITALS: BP 105/70
--- NOTE | 2022-11-23 05:10 | NUR ---
SUMMARY: PT A/OX4, CALLS APPROPRIATELY TO SPECIFY NEEDS AND IS PLEASANT AND COOPERTIVE W/CARE. HE REMAINS ON BEDREST D/T LIMITED MOBILITY AND PAIN R/T BLE CELLULITIS W/WOUNDS. DX'S REMAIN C/D/I AND WOUND CARE CX PLANNED FOR TODAY. TURN SCHEDULE MAINTAINED AND LEG PAIN MANAGED W/NORCO PRN FOR TOLERABLE RELIEF. HE DOES PLAN TO DISCUSS POSSIBILITY OF GETTING ADDITIONAL PRN MED FOR BREAKTHROUGH PAIN. SAN IS PATENT/DRAINING AND POWDER APPLIED TO EXCORIATED GROIN/SCROTUM. 1 UNIT PRBC'S WAS COMPLETED THIS SHIFT AND WAS TOLERATED W/O S/S DISTRESS OR ADVERSE EVENT. PT ALSO HAS PROTONIX GTT AND NS INFUSING AT 150 ML/HR. STAFF HAVEN'T SEEN S/S GI BLEEDING BUT NO STOOL OBSERVED THIS SHIFT. NO ACUTE CHANGES, VSS/AFEBRILE. WCTM AND REPORT TO DAY RN.
[2022-11-23 05:51] LABS: Hematocrit 23.2 % (37.0-53.0); Hemoglobin 7.5 g/dL (13.5-17.5); Mean Corpuscular HGB 29.2 pg (26.0-34.0); Mean Corpuscular HGB Conc 32.3 g/dL (31.5-36.5); Mean Corpuscular Volume 90 fL (80-100); Mean Platelet Volume 9.2 fL (9.1-12.4); NRBC ABSOLUTE 0.03 K/mm3 (0.00-0.02); NRBC Auto 0.6 /100 WBC (0.0-0.2); Platelet Count 137 K/mm3 (150-400); RDW Coefficient Variation 16.1 % (11.7-14.2); RDW Standard Deviation 52.8 fL (35.1-46.3); Red Blood Cell Count 2.57 M/mm3 (4.30-5.90); White Blood Cell Count 4.64 K/mm3 (4.00-11.30)
[2022-11-23 06:12] LABS: Bun/Creatinine Ratio 21.1 (12.0-20.0); Calcium, Blood 8.2 mg/dL (8.5-10.1); Creatinine, Blood 1.33 mg/dL (0.60-1.20); Potassium, Blood 3.2 mmol/L (3.5-5.5)
[2022-11-23 06:14] LABS: BAND PERCENT MAN 3 % (0-8); BASOPHILS PERCENT MAN 0 % (0-2); EOSINOPHILS ABSOLUTE MAN 0.18 K/mm3 (0.00-0.68); EOSINOPHILS PERCENT MAN 4 % (0-6); LYMPHOCYTES ABSOLUTE MAN 0.74 K/mm3 (0.84-5.20); LYMPHOCYTES PERCENT MAN 16 % (21-46); METAMYELOCYTE ABSOLUTE MAN 0.09 K/mm3 (0.00-0.00); METAMYELOCYTE PERCENT MAN 2 % (0-0); MONOCYTES PERCENT MAN 13 % (4-13); MYELOCYTE ABSOLUTE MAN 0.18 K/mm3 (0.00-0.00); MYELOCYTE PERCENT MAN 4 % (0-0); NEUTROPHILS ABSOLUTE MAN 2.83 K/mm3 (1.96-9.15); SEG NEUTROPHILS PERCENT MAN 58 % (41-73); TOTAL CELLS COUNTED 100
[2022-11-23 07:40] VITALS: BP 126/71
--- NOTE | 2022-11-23 11:15 | NUR ---
PT WITH INDWELLING SAN CATHETER IN PLACE. DISCUSSED WITH DR HAWK NEED TO KEEP SAN IN PLACE D/T SWOLLEN SCROTUM AND INABILITY TO SIT UP OR REPOSITION TO USE URINAL. DR HAWK AGREED TO KEEP SAN IN PLACE FOR NOW.
[2022-11-23 15:44] VITALS: BP 142/99
--- NOTE | 2022-11-23 17:39 | NUR ---
SHIFT SUMMARY NO ACUTE CHANGES DURING SHIFT. PT ALERT AND ORIENTED, CALLS APPROPRIATELY. PT REMAINS ON RA, BR, SAN IN PLACE, DRAINING TO GRAVITY. NS INFUSING @ 150, PROTONIX INFUSING @ 10. BLE WOUNDS, WOUND CARE NURSE SAW PT AND CHANGED DRESSINGS. MEDICATED MULTIPLE TIMES WITH PAIN MEDICAION. WILL CONTINUE TO MONITOR. CALL LIGHT WITHIN REACH.
[2022-11-23 21:08] VITALS: BP 106/63
[2022-11-24 01:45] LABS: Calcium, Ionized (POC) 1.05 mmol/L (1.10-1.46); Chloride (POC) 110 mmol/L (98-108); Creatinine (POC) 6.1 mg/dL (0.8-1.3); Glucose (ISTAT POC) 112 mg/dL (70-99); Hemoglobin (POC) 11.6 g/dL (13.5-17.5); Potassium (POC) 4.8 mmol/L (3.5-5.5); Sodium (POC) 130 mmol/L (135-148); Total CO2 (POC) 10 mmol/L (21-32)
[2022-11-24 04:18] VITALS: BP 117/74
[2022-11-24 06:21] LABS: Hematocrit 24.1 % (37.0-53.0); Hemoglobin 7.6 g/dL (13.5-17.5); Mean Corpuscular HGB 28.9 pg (26.0-34.0); Mean Corpuscular HGB Conc 31.5 g/dL (31.5-36.5); Mean Corpuscular Volume 92 fL (80-100); Mean Platelet Volume 9.5 fL (9.1-12.4); NRBC ABSOLUTE 0.02 K/mm3 (0.00-0.02); NRBC Auto 0.3 /100 WBC (0.0-0.2); Platelet Count 147 K/mm3 (150-400); RDW Coefficient Variation 16.7 % (11.7-14.2); RDW Standard Deviation 54.6 fL (35.1-46.3); Red Blood Cell Count 2.63 M/mm3 (4.30-5.90); White Blood Cell Count 5.97 K/mm3 (4.00-11.30)
--- NOTE | 2022-11-24 06:22 | NUR ---
SHIFT SUMMARY A/OX4, BEDREST AT THIS TIME. TELE AFIB 80S, DENIES CHEST PAIN/PRESSURE. SPO2 >92% ON RA. PROTONIX GTT TO ANTHONY. C/O PAIN TO BLE, MEDICATED PER EMAR. SAN PATENT AND DRAINING TO GRAVITY. VSS, NO ACUTE CHANGES AT THIS TIME. BED IN LOWEST POSITION WITH CALL LIGHT IN REACH. WILL CONTINUE TO MONITOR AND REPORT TO ONCOMING RN
[2022-11-24 06:47] LABS: BAND PERCENT MAN 2 % (0-8); BASOPHILS PERCENT MAN 0 % (0-2); EOSINOPHILS ABSOLUTE MAN 0.05 K/mm3 (0.00-0.68); EOSINOPHILS PERCENT MAN 1 % (0-6); LYMPHOCYTES ABSOLUTE MAN 0.11 K/mm3 (0.84-5.20); LYMPHOCYTES PERCENT MAN 2 % (21-46); METAMYELOCYTE ABSOLUTE MAN 0.05 K/mm3 (0.00-0.00); METAMYELOCYTE PERCENT MAN 1 % (0-0); MONOCYTES ABSOLUTE MAN 0.17 K/mm3 (0.16-1.47); MONOCYTES PERCENT MAN 3 % (4-13); MYELOCYTE ABSOLUTE MAN 0.17 K/mm3 (0.00-0.00); MYELOCYTE PERCENT MAN 3 % (0-0); NEUTROPHILS ABSOLUTE MAN 5.37 K/mm3 (1.96-9.15); SEG NEUTROPHILS PERCENT MAN 88 % (41-73); TOTAL CELLS COUNTED 100
[2022-11-24 07:04] LABS: Albumin, Blood 1.7 g/dL (3.4-5.0); Albumin/Globulin Ratio 0.4 (0.8-1.8); Bilirubin, Total 0.3 mg/dL (0.1-1.0); Bun/Creatinine Ratio 15.6 (12.0-20.0); Calcium, Blood 8.3 mg/dL (8.5-10.1); Creatinine, Blood 1.22 mg/dL (0.60-1.20); Globulin, Blood 3.8 g/dL (2.2-4.0); Potassium, Blood 3.3 mmol/L (3.5-5.5); Total Protein, Blood 5.5 g/dL (6.4-8.2)
[2022-11-24 07:43] VITALS: BP 111/68
[2022-11-24 14:56] VITALS: BP 111/73
--- NOTE | 2022-11-24 16:22 | NUR ---
SHIFT SUMMARY NO ACUTE CHANGES THIS SHIFT. PATIENTS BLE REMAIN PAINFUL, INCREASED PAIN WITH REPOSITIONING & WOUND CHANGES. PAIN MEDICATION PER EMAR/ PATIENT TOLERATING REGULAR PO DIET, DENIES N/V. SAN REMAINS IN PLACE, DRAINING TO GRAVITY. CALLS APPROPRIATLEY, IN REACH. WILL REPORT TO ONCOMING RN.
--- NOTE | 2022-11-24 16:24 | NUR ---
WOUND CARE NEW PHOTO AND ASSESSMENTS IN HARD CHART. BLE WOUNDS ARE SUPERFICIAL AND FRIABLE. WOUNDS CLEANSED WITH NS, CALCIUM ALGINATE TO WOUND BED, COVERED ABD ROLLED GAUZE. CHANGES ARE DAILY AT THIS POINT D/T DRAINAGE. IF DRAINAGE DECREASES THIS RN WOULD LIKE TO HAVE FREQUENCY DECREASED TO EVERY OTHER DAY OR 3X WEEKLY. PT WILL NEED FOLLOW UP WITH WC AT ME
[2022-11-24 19:38] VITALS: BP 94/59
[2022-11-25 03:34] VITALS: BP 106/62
--- NOTE | 2022-11-25 05:40 | NUR ---
SHIFT SUMMARY A/OX4, BEDREST AT THIS TIME. TELE AFIB 80S, DENIES CHEST PAIN/PRESSURE. SPO2 >92% ON RA. C/O PAIN TO BLE, MEDICATED PER EMAR. SAN PATENT AND DRAINING TO GRAVITY. VSS, NO ACUTE CHANGES AT THIS TIME. BED IN LOWEST POSITION WITH CALL LIGHT IN REACH. WILL CONTINUE TO MONITOR AND REPORT TO ONCOMING RN
[2022-11-25 06:24] LABS: Hematocrit 23.1 % (37.0-53.0); Hemoglobin 7.4 g/dL (13.5-17.5); Mean Corpuscular Volume 91 fL (80-100); Mean Platelet Volume 9.2 fL (9.1-12.4); Platelet Count 161 K/mm3 (150-400); RDW Coefficient Variation 16.7 % (11.7-14.2); RDW Standard Deviation 53.3 fL (35.1-46.3); Red Blood Cell Count 2.55 M/mm3 (4.30-5.90); White Blood Cell Count 7.94 K/mm3 (4.00-11.30)
[2022-11-25 06:40] LABS: Calcium, Blood 8.3 mg/dL (8.5-10.1); Creatinine, Blood 1.13 mg/dL (0.60-1.20); Potassium, Blood 3.3 mmol/L (3.5-5.5)
[2022-11-25 07:12] VITALS: BP 111/59
[2022-11-25 07:50] LABS: BAND PERCENT MAN 1 % (0-8); BASOPHILS PERCENT MAN 0 % (0-2); EOSINOPHILS ABSOLUTE MAN 0.47 K/mm3 (0.00-0.68); EOSINOPHILS PERCENT MAN 6 % (0-6); LYMPHOCYTES ABSOLUTE MAN 0.71 K/mm3 (0.84-5.20); LYMPHOCYTES PERCENT MAN 9 % (21-46); METAMYELOCYTE ABSOLUTE MAN 0.07 K/mm3 (0.00-0.00); METAMYELOCYTE PERCENT MAN 1 % (0-0); MONOCYTES ABSOLUTE MAN 0.39 K/mm3 (0.16-1.47); MONOCYTES PERCENT MAN 5 % (4-13); MYELOCYTE ABSOLUTE MAN 0.31 K/mm3 (0.00-0.00); MYELOCYTE PERCENT MAN 4 % (0-0); NEUTROPHILS ABSOLUTE MAN 5.95 K/mm3 (1.96-9.15); SEG NEUTROPHILS PERCENT MAN 74 % (41-73); TOTAL CELLS COUNTED 100
[2022-11-25 09:29] LABS: Source, Urine Foley catheter
[2022-11-25 09:34] LABS: Bilirubin, Urine Neg (Neg); Blood, Urine 1+ (Neg); Glucose Qualitative, Urine Neg (Neg); Ketones, Urine Neg (Neg); Leukocyte Esterase, Urine 1+ (Neg); Nitrite, Urine Neg (Neg); Protein, Urine 1+ (Neg); Urobilinogen, Urine NORM (Normal)
[2022-11-25 09:42] LABS: Appearance, Urine Clear (Clear); Color, Urine Yellow (P-Yellow)
[2022-11-25 09:43] LABS: Red Blood Cells, Urine 0-2 /hpf (0-2); Squamous Epithelial Cells Few /hpf (Few)
[2022-11-25 09:44] LABS: Bacteria Mod /hpf; Mucus Light (0-Heavy)
--- NOTE | 2022-11-25 10:35 | NUR ---
RN AM NOTE MR RUBIO IS ORIENTATED X4. C/O PAIN TO RIGHT SIDE THAT HE DESCRIBES A "NERVE PINCHING" PAIN THAT HE SAID STARTED YESTERDAY WHEN HE STOOD UP. HE DECLINED OCCUPATIONAL THERAPY THIS AM. GIVEN NORCO BUT HE SAID IT DOESN'T HELP MUCH AT ALL. ALSO C/O BILATERAL LEG PAIN, LEGS BOTH BANDAGED. C/O ABDOMINAL BLOATING - SAID NO BM SINCE 11/18. ABDOMEN FIRM AND DISTENDED. SIMETHICONE ORDERED BY DR HUTCHINS. C/O INCREASING SWELLING. BOTH ARMS ARE SWOLLEN, HE SAID THIS IS NEW THE LAST FEW DAYS. EDEMA FROM HIS HIPS DOWN THROUGH HIS FEET, GROSS SCROTAL/GENITAL SWELLING AND TENDERNESS. IVF WERE INFUSING AT 150CC/HR, STOPPED PER DR HUTCHINS. SAN CATHETER REMOVED AFTER UA SENT. PT EDUCTED TO CALL FOR ASSISTANCE TO URINATE D/T EDEMA. PT C/O COUGHING UP THICK CLEAR PHLEGM AND HAVING DIFFICULTY TAKING A DEEP BREATH. PT NOT AN DVT PROPHALAXIS D/T RECENT HX GI BLEED AND LEG WOUNDS. FINDINGS DISCUSSED WITH DR HUTCHINS. BED LOW, CALL LIGHT IN REACH.
[2022-11-25 14:45] VITALS: BP 112/59
--- NOTE | 2022-11-25 15:46 | NUR ---
SHIFT SUMMARY SEE RN NOTE 1042AM. MR RUBIO HAS NOT WANTED TO MOVE MUCH TODAY. HE DECLINED OT THIS AM AND DID NOT TURN OR GET UP WITH PT THIS AFTERNOON. HE HAS NOT WANTED TO GET UP OR TURN WITH NURSING STAFF. HE C/O R SIDE PAIN. SAID THAT HE PINCHED A NERVE WHEN HE GOT UP YESTERDAY. RE-EDUCATED ON REASONS THAT MOVEMENT IS IMPORTANT FOR HEALTH AND RECOVERY. JASWINDER REMOVED THIS AM AND HE HAS VOIDED SINCE. C/O CONSTIPATION AND GAS PAIN/ABDOMINAL BLOATING. HE SAID SIMETHICONE HELPED FOR A SHORT WHILE. GIVEN MIRALAX AND PO FLUIDS ENCOURAGED. BED LOW, CALL LIGHT IN REACH.
--- NOTE | 2022-11-25 16:13 | NUR ---
WOUND CARE BLE DRESSING CHANGED. WOUNDS CONTINUE TO IMPROVE. TRIALING XEROFORM ON LLE. PT TOLERATED WELL
--- NOTE | 2022-11-25 16:23 | NUR ---
WOUND CARE BLE DRESSING CHANGED. CALCIUM ALGINATE IS WORKING WELL. THERE IS A NOTED DECREASE IN PAIN WITH DRESSING CHANGES. DRESSING SATURATED SO WILL STICK TO DAILY DRESSING CHANGES AT THIS POINT.
[2022-11-25 19:18] VITALS: BP 129/75
[2022-11-26 02:18] VITALS: BP 131/64
--- NOTE | 2022-11-26 05:14 | NUR ---
SHIFT SUMMARY 62 YR M ADMITTED ON 11/18/22 FOR SHOCK. FULL CODE. PT ATTEMPTED TO GET UP ON HIS OWN THIS SHIFT AND ENDED UP MAKING BOTH OF HIS LEGS BLEED AND HE GOT STUCK SITTING ON THE EDGE OF THE BED. IT WAS PAINFUL FOR HIM TO BE REPOSITIONED AND TO HAVE HIS BEDDING CHANGED DUE TO THE BLEEDING. HE STATED THAT HE LEARNED HIS LESSON AND WILL CALL FOR HELP FROM NOW ON. ADDITIONAL ABD PADS AND AND GAUZE WERE APPLIED TO THE WOUND DRESSING THAT IS ALREADY IN PLACE. WOUND CARE IS HANDLING DRESSING CHANGES SO EXISTING BANDAGING WAS NOT REMOVED. OTHERWISE, THERE NO ACUTE CHANGES. PT IS STILL REQUIRING ASSISTANCE TO USE A URINAL BUT IS ABLE TO CALL FOR HELP WHEN HE NEEDS IT. NO BM THIS SHIFT.
[2022-11-26 08:13] LABS: Hematocrit 23.5 % (37.0-53.0); Hemoglobin 7.4 g/dL (13.5-17.5); Mean Corpuscular HGB 28.8 pg (26.0-34.0); Mean Corpuscular HGB Conc 31.5 g/dL (31.5-36.5); Mean Corpuscular Volume 91 fL (80-100); Mean Platelet Volume 9.4 fL (9.1-12.4); Platelet Count 185 K/mm3 (150-400); RDW Coefficient Variation 16.7 % (11.7-14.2); RDW Standard Deviation 53.1 fL (35.1-46.3); Red Blood Cell Count 2.57 M/mm3 (4.30-5.90); White Blood Cell Count 7.96 K/mm3 (4.00-11.30)
[2022-11-26 08:26] LABS: Albumin, Blood 1.7 g/dL (3.4-5.0); Albumin/Globulin Ratio 0.4 (0.8-1.8); Bilirubin, Total 0.3 mg/dL (0.1-1.0); Bun/Creatinine Ratio 17.3 (12.0-20.0); Creatinine, Blood 1.1 mg/dL (0.60-1.20); Globulin, Blood 4.1 g/dL (2.2-4.0); Potassium, Blood 3.4 mmol/L (3.5-5.5); Total Protein, Blood 5.8 g/dL (6.4-8.2)
[2022-11-26 08:39] VITALS: BP 105/69
[2022-11-26 08:40] LABS: BAND PERCENT MAN 1 % (0-8); BASOPHILS PERCENT MAN 0 % (0-2); EOSINOPHILS ABSOLUTE MAN 0.23 K/mm3 (0.00-0.68); EOSINOPHILS PERCENT MAN 3 % (0-6); LYMPHOCYTES ABSOLUTE MAN 0.55 K/mm3 (0.84-5.20); LYMPHOCYTES PERCENT MAN 7 % (21-46); MONOCYTES ABSOLUTE MAN 0.07 K/mm3 (0.16-1.47); MONOCYTES PERCENT MAN 1 % (4-13); MYELOCYTE ABSOLUTE MAN 0.15 K/mm3 (0.00-0.00); MYELOCYTE PERCENT MAN 2 % (0-0); NEUTROPHILS ABSOLUTE MAN 6.92 K/mm3 (1.96-9.15); SEG NEUTROPHILS PERCENT MAN 86 % (41-73); TOTAL CELLS COUNTED 100
--- NOTE | 2022-11-26 14:56 | NUR ---
WOUND CARE BLE DRESSED PER ORDER. PT IS TOLERATONG CALCIUM ALGINATE. PT TREPORTS LESS PAIN WITH DRESSING CHANGES. PT EDUCATED ON VENOUS DISEASE AND FOLLOW UP CARE NEEDED ON DISCHARGE SUCH VENOUS STUDIES AND COMPRESSION.
--- NOTE | 2022-11-26 18:28 | NUR ---
SHIFT SUMMARY: NO ACUTE EVENTS. NO EVENTS ON TELEMETRY, AFIB WITH BBB AND PVC'S RATE 90-LOW 100'S. SEVERE EDEMA IN BLE, BILAT HANDS, AND SCROTUM/PENIS; ELEVATED MUCH POSSIBLE. FINALLY HAD LARGE BM THIS AFTERNOON AFTER SUPPOSITORY. C/O PAIN IN BLE AND SCROTUM; MEDICATED PER EMAR WITH ADEQUATE RELIEF. WORKED WITH PT/OT. MILK DRYING MACHINE OPERATOR CHANGED DRESSINGS ON BLE. USING URINAL WITH ASSISTANCE. GETTING UP TO CHAIR/BSC WITH 1 PERSON ASSIST, GAIT BELT, AND FWW; IS AWARE OF HIS RISK FOR FALLS AND CALLS APPROPRIATELY.
[2022-11-26 19:48] VITALS: BP 114/72
[2022-11-27 02:24] VITALS: BP 93/55
--- NOTE | 2022-11-27 03:16 | NUR ---
SHIFT SUMMARY 62 YR M ADMITTED ON 11/18/22 FOR BLE CELLULITIS. FULL CODE. NO ACUTE CHANGES THIS SHIFT. PT STATED THAT HE IS FEELING MUCH BETTER SINCE HAVING A LARGE BOWEL MOVEMENT TODAY. PAIN IS ADEQUATELY CONTROLLED WITH PAIN MEDS PER EMAR. PT MAY HAVE PLACEMENT AT [facility] EARLY TODAY. HE STATES HE IS NERVOUS TO GO THERE HE IS USED TO THE STAFF HERE AND HE IS COMFORTABLE WITH US. THIS NURSE OFFERED SUPPORT AND ENCOURAGEMENT.
[2022-11-27 07:55] VITALS: BP 111/65
[2022-11-27 08:40] LABS: Hematocrit 22.6 % (37.0-53.0); Hemoglobin 7.3 g/dL (13.5-17.5)
[2022-11-27 09:04] LABS: Calcium, Blood 8.2 mg/dL (8.5-10.1); Creatinine, Blood 1.11 mg/dL (0.60-1.20); Potassium, Blood 3.3 mmol/L (3.5-5.5)
[2022-11-27 19:23] VITALS: BP 107/73
--- NOTE | 2022-11-27 20:07 | NUR ---
SHIFT SUMMARY PTN WITH BLE CELLULITIS WITH DRESSING COVERING C/D/I EARLY SHIFT WHEN WOUND CARE NURSE CHECKED PTN. LATER IN SHIFT NOTED TO HAVE SOME DRAINAGE. WOUND CARE CENTER CONTACTED, BUT NO ONE AVAIL UNTIL WEDNESDAY FOR DRESSING CHANGE. PTN WITH EDEMA TO LOWER EXTREMITIES, THOUGH COVERED, SOME TO HANDS, WELL SCROTAL SWELLING. PTN DIURESING. ANATOMY DIFFICULT FOR URINAL, ALTHOUGH THE PTN CAN MANAGE. HE JUST NEEDED CLEANED OFTEN. PTN HAD THOROUGH CLEANING, POWERED, AND ABD'S TO DRY TO KEEP URINE OFF OF UPPER INNER THIGHS AND SCROTAL AREA. PTN WILL D[facility] TO [facility]. HE IS TO FOLLOWUP WITH WOUND CARE CLINIC AND WITH DR GEORGE IN 7-14 DAYS. 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 PAIN RELATED TO BLE TREATED PER EMAR. CONTINUE TO MONITOR.
[2022-11-28 02:48] VITALS: BP 103/72
--- NOTE | 2022-11-28 04:00 | NUR ---
SHIFT SUMMARY PATIENT HAD NO ACUTE CHANGES. AXOX 4 AND BEDREST. USES URINAL AT BEDSIDE. PICC AND POWERGLIDE INTACT. TELE MONITOR AFIB W/BBB @ 93. REPORTED BLE PAIN X TWO AND NORCO GIVEN PER EMAR. VSS/AFEBRILE. DENIES SOB AND N/V. CALL LIGHT IN REACH. BED IN LOWEST POSITION. WILL CONTINUE TO MONITOR UNTIL DAY SHIFT NURSE ASSUMES CARE.
[2022-11-28 07:35] VITALS: BP 126/71
[2022-11-28 08:21] LABS: Hemoglobin 7.4 g/dL (13.5-17.5)
[2022-11-28 08:43] LABS: Bun/Creatinine Ratio 19.8 (12.0-20.0); Calcium, Blood 8.1 mg/dL (8.5-10.1); Creatinine, Blood 1.06 mg/dL (0.60-1.20); Magnesium, Blood 1.3 mg/dL (1.6-2.4); Potassium, Blood 3.3 mmol/L (3.5-5.5)
--- NOTE | 2022-11-28 16:23 | NUR ---
PT AOX4 AND COOPERATIVE OF CARE. PT WAS ABLE TO MAKE ALL NEEDS KNOWN. PT DID REFUSE PHYSICAL THERAPY TODAY DUE TO SCROTAL PAIN AND LEG PAIN. PT IS TREATED PER EMAR FOR PAIN. LEG WRAPS PER CHANGED PER EMAR AND REBANDAGED PT TOLERATED WELL. NO DISTRESS NOTED AT THIS TIME CALL LIGHT WITHIN REACH WILL CONTINUE TO MONITOR.
[2022-11-28 16:45] VITALS: BP 107/67
[2022-11-28 20:45] VITALS: BP 110/67
[2022-11-29] VITALS (7 sets, daily range): BP systolic 104–121; BP diastolic 61–89
--- NOTE | 2022-11-29 04:12 | NUR ---
SHIFT SUMMARY PATIENT HAD NO ACUTE CHANGES. AXOX 4 AND BEDREST. DENIES CHEST PAIN, SOB, AND N/V. REPORTED BLE PAIN X TWO AND NORCO GIVEN PER EMAR. POWERGLIDE AND PICC LINE INTACT. VSS/AFEBRILE. DRESSING BLE C/D/I. COOPERATIVE WITH CARE. CALL LIGHT IN REACH. BED IN LOWEST POSITION. WILL CONTINUE TO MONITOR UNTIL DAY SHIFT NURSE ASSUMES CARE.
[2022-11-29 05:22] LABS: Hematocrit 21.8 % (37.0-53.0)
[2022-11-29 05:45] LABS: Bun/Creatinine Ratio 21.6 (12.0-20.0); Creatinine, Blood 1.11 mg/dL (0.60-1.20); Magnesium, Blood 1.4 mg/dL (1.6-2.4); Potassium, Blood 3.3 mmol/L (3.5-5.5)
[2022-11-29 14:41] LABS: Hematocrit 25.2 % (37.0-53.0); Hemoglobin 7.9 g/dL (13.5-17.5)
--- NOTE | 2022-11-29 19:46 | NUR ---
SHIFT SUMMARY- PT IS ALERT AND ORIENTED X4. CALM AND COOPERATIVE. ONE UNIT PRBC TRANSFUSED TODAY. PT REPORTS A GOUT FLARE UP IN THE RIGHT UPPER EXTREMITY, WRIST IS NOTICABLY SWOLLEN. MD NOTIFED, SEE EMAR. UNABLE TO CHANGE BLE THIS SHIFT. ONCOMMING RN NOTIFIED. NO ACUTE CHANGES THIS SHIFT. CALL LIGHT IS IN REACH. PT CALLS APPROPRIATELY
[2022-11-30 02:57] VITALS: BP 126/77
--- NOTE | 2022-11-30 04:10 | NUR ---
SHIFT SUMMARY PATIENT HAD NO ACUTE CHANGES. AXOX 4 AND BEDREST. POWERGLIDE AND PICC LINE INTACT. TELE MONITOR AFIB, BBB, @ 93. REPORTED RIGHT ARM GOUT AND ULTRAM 50 MG GIVEN PER EMAR. NORCO GIVEN FOR BLE PAIN X TWO. DENIES CHEST PAIN, SOB, AND N/V. VSS/LOW GRADE TEMP 99.1. REFUSED WOUND DRESSING CHANGE AND REPORTS HE WILL WAIT UNTIL WOUND RN COMES IN ON DAY SHIFT. CALL LIGHT IN REACH. BED IN LOWEST POSITION. WILL CONTINUE TO MONITOR UNTIL DAY SHIFT NURSE ASSUMES CARE.
[2022-11-30 05:28] LABS: BASOPHILS ABSOLUTE AUTO 0.01 K/mm3 (0.00-0.23); BASOPHILS PERCENT AUTO 0 % (0-2); EOSINOPHILS ABSOLUTE AUTO 0.18 K/mm3 (0.00-0.68); EOSINOPHILS PERCENT AUTO 3 % (0-6); Hematocrit 23.7 % (37.0-53.0); Hemoglobin 7.6 g/dL (13.5-17.5); IMMATURE GRAN ABSOLUTE AUTO 0.11 K/mm3 (0.00-0.10); IMMATURE GRAN PERCENT AUTO 2 % (0-1); LYMPHOCYTES PERCENT AUTO 14 % (21-46); MONOCYTES ABSOLUTE AUTO 0.57 K/mm3 (0.16-1.47); MONOCYTES PERCENT AUTO 10 % (4-13); Mean Corpuscular HGB 29.1 pg (26.0-34.0); Mean Corpuscular HGB Conc 32.1 g/dL (31.5-36.5); Mean Corpuscular Volume 91 fL (80-100); Mean Platelet Volume 9.5 fL (9.1-12.4); NEUTROPHILS ABSOLUTE AUTO 4.11 K/mm3 (1.96-9.15); NEUTROPHILS PERCENT AUTO 71 % (41-73); Platelet Count 169 K/mm3 (150-400); RDW Coefficient Variation 15.8 % (11.7-14.2); RDW Standard Deviation 51.3 fL (35.1-46.3); Red Blood Cell Count 2.61 M/mm3 (4.30-5.90); White Blood Cell Count 5.78 K/mm3 (4.00-11.30)
[2022-11-30 05:48] LABS: Bun/Creatinine Ratio 22.3 (12.0-20.0); Calcium, Blood 8.4 mg/dL (8.5-10.1); Creatinine, Blood 1.03 mg/dL (0.60-1.20); Magnesium, Blood 1.6 mg/dL (1.6-2.4); Potassium, Blood 3.1 mmol/L (3.5-5.5)
[2022-11-30 07:37] VITALS: BP 130/61
[2022-11-30 11:58] LABS: SARS-Cov-2 (COVID-19) PCR, MMC Negative (NEGATIVE)
[2022-11-30] MEDS ORDERED: JUVEN PACKET1 EAC3 PO (12:05)
[2022-11-30] MEDS ORDERED: DOCU100 PO (12:05)
[2022-11-30] MEDS ORDERED: FURO40 PO (12:06)
[2022-11-30] MEDS ORDERED: FERSU300 PO (12:06)
[2022-11-30] MEDS ORDERED: LEVSOD25 PO (12:07)
[2022-11-30] MEDS ORDERED: HYDACE10B PO (12:07)
[2022-11-30] MEDS ORDERED: ALLERCLEAR10 MG PO (12:11)
[2022-11-30] MEDS ORDERED: NYSTOP15 GM TOP (12:12)
[2022-11-30] MEDS ORDERED: PANT40 PO (12:15)
[2022-11-30] MEDS ORDERED: NALOXONE HCL4 MG (12:15)
[2022-11-30] MEDS ORDERED: SIME80CH PO (12:16)
[2022-11-30] MEDS ORDERED: MIRALAX11914 PO (12:16)
[2022-11-30] MEDS ORDERED: A AND D OINTM42.5 GM TOP (12:17)
[2022-11-30] MEDS ORDERED: TRAM50 PO (12:17)
--- NOTE | 2022-11-30 15:10 | NUR ---
DISCHARGE SUMMARY REPORT CALLED TO BAILEY JONAS. PT RECEIVED DISCHARGE, FOLLOWUP, AND MEDICATION INSTRUCTIONS. PT VOICED COMPLETE UNDERSTANDING. PICC LINE AND POWERGLIDE REMOVED. TELE BOX REMOVED. SCRIPTS FOR PAIN MEDICATION PLACED IN PT PACKET. PT PICKUP SCHEDULED FOR [id number]. WILL CONTINUE TO MONITOR UNTIL PT LEAVES.
== END 2022-11-30 16:27 | DRG 356 ==
LOC: ER 15:53 → ICUE 21:06 → ICUW 21:06 → MEDS 21:06 → ICUE 21:30 → ICUW 11-19 07:13 → ICUE 11-20 12:35 → MEDS 11-21 04:23
PROVIDERS: Family Medicine; Hospitalist; Nurse Practitioner Acute Care; Orthopaedic Surgery; Student in an Organized Health Care Education/Training Program; ADMIT Internal Medicine
PROC: 0T9B70Z Drainage of Bladder with Drainage Device, Via Natural or Artificial Opening (ICD-10-PCS; principal; 2022-11-18)
PROC: 30233N1 Transfusion of Nonautologous Red Blood Cells into Peripheral Vein, Percutaneous Approach (ICD-10-PCS; 2022-11-18)
PROC: 3E033XZ Introduction of Vasopressor into Peripheral Vein, Percutaneous Approach (ICD-10-PCS; 2022-11-18)
PROC: 05HY33Z Insertion of Infusion Device into Upper Vein, Percutaneous Approach (ICD-10-PCS; 2022-11-18)
PROC: 0W3P8ZZ Control Bleeding in Gastrointestinal Tract, Via Natural or Artificial Opening Endoscopic (ICD-10-PCS; 2022-11-19)
PROC: 0DB68ZX Excision of Stomach, Via Natural or Artificial Opening Endoscopic, Diagnostic (ICD-10-PCS; 2022-11-19)
PROC: 0JBN0ZZ Excision of Right Lower Leg Subcutaneous Tissue and Fascia, Open Approach (ICD-10-PCS; 2022-11-20)
PROC: 0JBP0ZZ Excision of Left Lower Leg Subcutaneous Tissue and Fascia, Open Approach (ICD-10-PCS; 2022-11-20)
PROC: 30233N1 Transfusion of Nonautologous Red Blood Cells into Peripheral Vein, Percutaneous Approach (ICD-10-PCS; 2022-11-22)
DX: K25.4 Chronic or unspecified gastric ulcer with hemorrhage (principal); R57.1 Hypovolemic shock; R57.8 Other shock; L03.115 Cellulitis of right lower limb; D62 Acute posthemorrhagic anemia; N17.9 Acute kidney failure, unspecified; E87.20 Acidosis, unspecified; K22.10 Ulcer of esophagus without bleeding; D61.818 Other pancytopenia; I83.218 Varicose veins of right lower extremity with both ulcer of other part of lower extremity and inflammation; I83.228 Varicose veins of left lower extremity with both ulcer of other part of lower extremity and inflammation; L97.819 Non-pressure chronic ulcer of other part of right lower leg with unspecified severity; L97.829 Non-pressure chronic ulcer of other part of left lower leg with unspecified severity; L03.116 Cellulitis of left lower limb; E87.1 Hypo-osmolality and hyponatremia; K26.4 Chronic or unspecified duodenal ulcer with hemorrhage; Z20.822 Contact with and (suspected) exposure to COVID-19; K29.70 Gastritis, unspecified, without bleeding; I48.91 Unspecified atrial fibrillation; D50.9 Iron deficiency anemia, unspecified; E83.51 Hypocalcemia; L29.9 Pruritus, unspecified; E87.6 Hypokalemia; E83.42 Hypomagnesemia; E86.0 Dehydration; I11.0 Hypertensive heart disease with heart failure; I50.9 Heart failure, unspecified; E03.9 Hypothyroidism, unspecified; E66.01 Morbid (severe) obesity due to excess calories; F10.20 Alcohol dependence, uncomplicated; M10.9 Gout, unspecified; Z86.14 Personal history of Methicillin resistant Staphylococcus aureus infection; Z87.440 Personal history of urinary (tract) infections; Z79.01 Long term (current) use of anticoagulants; Z79.890 Hormone replacement therapy; Z79.899 Other long term (current) drug therapy
CPT/HCPCS: 36415; 36430; 36569; 51702; 71045; 73590; 76770; 80047; 80048; 80053; 80202; 81001; 82010; 82272; 82550; 82728; 82803; 83540; 83550; 83605; 83735; 84100; 84145; 84443; 84550; 85014; 85018; 85025; 85610; 86850; 86900; 86901; 86923; 87040; 87070; 87075; 87077; 87086; 87186; 87205; 88305; 88312; 93005; 93010; 96361; 96365; 96366; 96368; 96375; 97110; 97162; 97166; 97530; 99285-25; A9270; C1751; C9113; J0171; J0612; J0690; J1170; J1940; J1956; J2001; J2250; J2370; J2405; J2704; J3010; J3370; J3475; J3480; J7030; J7050; J7060; J7120; P9016; U0004

== ENCOUNTER → 2023-08-25 | Outpatient (CLI) | payer OTHER ==
[~2023-08-25] MED LIST changes: +A AND D OINTM42.5 GM TOP; +ALLERCLEAR10 MG PO; +DOCU100 PO; +FURO40 PO; +HYDACE10B PO; +JUVEN PACKET1 EAC3 PO; +LEVSOD25 PO; +MIRALAX11914 PO; +NALOXONE HCL4 MG; +NYSTOP15 GM TOP; +PANT40 PO; +SIME80CH PO
== END ==
LOC: LAB 11:29 → LAB SHORT 11:29
DX: I87.2 Venous insufficiency (chronic) (peripheral) (principal)
CPT/HCPCS: 87070; 87077; 87186; 87205

== ENCOUNTER → 2024-06-01 | Outpatient (CLI) | payer OTHER ==
[2024-06-01 16:48] LABS: BASOPHILS ABSOLUTE AUTO 0.03 K/mm3 (0.00-0.23); BASOPHILS PERCENT AUTO 1 % (0-2); EOSINOPHILS ABSOLUTE AUTO 0.14 K/mm3 (0.00-0.68); EOSINOPHILS PERCENT AUTO 3 % (0-6); Hematocrit 34.6 % (37.0-53.0); Hemoglobin 11.9 g/dL (13.5-17.5); IMMATURE GRAN ABSOLUTE AUTO 0.04 K/mm3 (0.00-0.10); IMMATURE GRAN PERCENT AUTO 1 % (0-1); LYMPHOCYTES ABSOLUTE AUTO 0.95 K/mm3 (0.84-5.20); LYMPHOCYTES PERCENT AUTO 20 % (21-46); MONOCYTES ABSOLUTE AUTO 0.47 K/mm3 (0.16-1.47); MONOCYTES PERCENT AUTO 10 % (4-13); Mean Corpuscular HGB 35.3 pg (26.0-34.0); Mean Corpuscular HGB Conc 34.4 g/dL (31.5-36.5); Mean Corpuscular Volume 103 fL (80-100); Mean Platelet Volume 9.6 fL (9.1-12.4); NEUTROPHILS PERCENT AUTO 66 % (41-73); Platelet Count 175 K/mm3 (150-400); RDW Coefficient Variation 12.8 % (11.7-14.2); RDW Standard Deviation 48.9 fL (35.1-46.3); Red Blood Cell Count 3.37 M/mm3 (4.30-5.90); White Blood Cell Count 4.83 K/mm3 (4.00-11.30)
[2024-06-01 17:47] LABS: Very Low Density Lipoprot Chol 17 mg/dL (6-32)
[2024-06-01 17:49] LABS: Alanine Aminotransfer (ALT/SGP 61 U/L (12-78); Albumin, Blood 3.3 g/dL (3.4-5.0); Albumin/Globulin Ratio 0.7 (0.8-1.8); Alk Phos 88 U/L (50-136); Anion Gap 10 mmol/L (3-11); Aspartate Aminotrans (AST/SGOT 106 U/L (12-37); Bilirubin, Total 0.9 mg/dL (0.1-1.0); Blood Urea Nitrogen 12 mg/dL (8-24); Bun/Creatinine Ratio 11.2 (12.0-20.0); CHOL/HDL RATIO 2.5; CO2, Blood 24 mmol/L (21-32); Calcium, Blood 8.6 mg/dL (8.5-10.1); Chloride, Blood 106 mmol/L (98-108); Cholesterol 183 mg/dL (50-200); Creatinine, Blood 1.07 mg/dL (0.60-1.20); Globulin, Blood 4.9 g/dL (2.2-4.0); Glomerular Filtration Rate 78 (60-); Glucose, Blood 99 mg/dL (70-99); HDL Cholesterol 72 mg/dL (>39); LDL/HDL RATIO 1.3; Low Density Lipoprotein Chol 94 mg/dL (0-110); Potassium, Blood 3.4 mmol/L (3.5-5.5); Sodium, Blood 137 mmol/L (136-145); Total Protein, Blood 8.2 g/dL (6.4-8.2); Triglycerides 87 mg/dL (30-160)
== END ==
LOC: LAB 14:55 → LAB SHORT 14:55
PROVIDERS: Family Medicine
DX: I87.2 Venous insufficiency (chronic) (peripheral) (principal)
CPT/HCPCS: 80053; 80061; 83880; 85025